=== PATIENT | male | born 1945 | race Caucasian/White ===

== ENCOUNTER 2017-11-16 09:13 | Emergency (ER) | payer MEDICARE, BC ==
--- OUTSIDE RECORDS SUMMARY | 2017-11-16 09:24 | XMS REPORT ---
:1945 External Reference #:[id number] Author Organization [employer] Address [address] [place] [address] [place] [address] Phone [phone] Care Team Providers Name Role Phone Girma Herrera III, MD Primary Care Physician Unavailable Payers Type Date Identification Numbers Payment Provider Subscriber Medicare Primary Effective: Policy Number: Medicare Yovany Pope 2010 [id number] PayID: [id number] [address] [place] [address] [facility] Part B Effective: Policy Number: BS Facets Yovany Pope 2010 [id number] PayID: [id number] [address] [address] [place] [address] Problems Date Description Provider Status Onset: 01/12/2011 Benign essential hypertension Girma Herrera M.D. Active Onset: 08/15/2012 Abdominal aortic aneurysm without Girma Herrera M.D. Active rupture Onset: 02/17/2015 Essential hypertension Girma Herrera M.D. Active Family History Date Family Member(s) Problem(s) Comments General Diabetes General Arthritis General [place] Father due to Diabetes () - complications of post-pancreatitis diabetes; ? [place]. age 64 Mother due to Arthritis () - ? complications from Rx for RA; age 79. ? 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) Cigarette Use Quit - Age 36 ETOH Use Drinks Alcoholic Beverages Occasionally Smoking Patient is a former smoker Exercise Type/Frequency Exercises regularly sit-ups daily; bikes 3x/week, walks Allergies, Adverse Reactions, Alerts Date Description Reaction Status Severity Comments 12/04/2006 NKDA active Medications Medication Date Status Form Strength Qnty SIG Indications Ordering Provider Valsartan Active Tablets 80mg 90tabs 1 by mouth Girma Erazo every day Sam Herrera No Active Hx Unknown Medications 018 - 018 Amlodipine Hx Tablets 10mg 30tabs 1 by mouth Girma Kessler Besylate 018 - every day Sharon Sam 018 Asa Hx 81mg 90units 1 po qd Girma Kessler 009 - Sharon Sam 012 Proctocream-HC Hx Cream 2.5% 30gm use as Girma Kessler 008 - directed Sharon Sam 015 Diovan 0 Hx Tablets 80mg 90tabs take 1 Girma Kessler 000 - tablet by Sharon mouth every M.DWm 018 day Immunizations CPT Code Status Date Vaccine Lot # [id number] Given 08/24/2015 Pneumococcal Conjugate Vaccine 13 Valent For [id number] Intramuscular Use 61510 Given 08/13/2011 Pneumonia Vaccine [id number] 53384 Given 07/11/2010 Tdap - Tetanus/Diptheria/Acellular Pertussis [id number] 48563 Given 02/10/2009 Influenza Virus 3Yrs & Over 35447 Given 02/17/2008 Influenza Virus 3Yrs & Over 58626 Given 04/22/2000 Td (History By Patient) Vital Signs Date Vital Result Comment 11/07/2017 Height 71.5 inches 5'11.50" Weight 193.25 lb Heart Rate 81 /min BP Systolic Sitting 136 mmHg BP Diastolic Sitting 80 mmHg O2 % BldC Oximetry 96 % BMI (Body Mass Index) 26.6 kg/m2 09/03/2017 Height 71.5 inches 5'11.50" Weight 198.00 lb Heart Rate 74 /min BP Systolic Sitting 128 mmHg BP Diastolic Sitting 80 mmHg O2 % BldC Oximetry 98 % BMI (Body Mass Index) 27.2 kg/m2 05/16/2017 Weight 194.25 lb Heart Rate 67 /min BP Systolic Sitting 138 mmHg BP Diastolic Sitting 84 mmHg O2 % BldC Oximetry 93 % 09/03/2016 Height 70.5 inches 5'10.50" Weight 188.38 lb Heart Rate 65 /min BP Systolic 130 mmHg BP Diastolic 76 mmHg Body Temperature 98.2 F O2 % BldC Oximetry 98 % BMI (Body Mass Index) 26.6 kg/m2 08/24/2015 Height 70.5 inches 5'10.50" Weight 190.00 lb Heart Rate 62 /min BP Systolic Sitting 144 mmHg BP Diastolic Sitting 88 mmHg Body Temperature 97.9 F O2 % BldC Oximetry 98 % BMI (Body Mass Index) 26.9 kg/m2 02/17/2015 Height 70.5 inches 5'10.50" Weight 195.00 lb Heart Rate 61 /min BP Systolic 128 mmHg BP Diastolic 90 mmHg Body Temperature 98.2 F O2 % BldC Oximetry 97 % BMI (Body Mass Index) 27.6 kg/m2 08/18/2014 Height 70.5 inches 5'10.50" Weight 190.00 lb Heart Rate 62 /min BP Systolic Sitting 142 mmHg BP Diastolic Sitting 82 mmHg Body Temperature 98.6 F O2 % BldC Oximetry 97 % BMI (Body Mass Index) 26.9 kg/m2 07/27/2014 Weight 190.00 lb Heart Rate 68 /min BP Systolic Sitting 128 mmHg BP Diastolic Sitting 82 mmHg Body Temperature 98.7 F O2 % BldC Oximetry 98 % 07/22/2014 Weight 193.00 lb Heart Rate 67 /min BP Systolic Sitting 128 mmHg BP Diastolic Sitting 88 mmHg O2 % BldC Oximetry 96 % 02/01/2014 Weight 193.75 lb Heart Rate 88 /min BP Systolic Sitting 138 mmHg 148/90 initially BP Diastolic Sitting 90 mmHg 148/90 initially Body Temperature 98.0 F 09/21/2013 Height 72 inches 6'0" Weight 190.00 lb Heart Rate 76 /min BP Systolic 120 mmHg BP Diastolic 78 mmHg BMI (Body Mass Index) 25.8 kg/m2 09/04/2013 Height 70.5 inches 5'10.50" Weight 194.50 lb Heart Rate 64 /min BP Systolic Sitting 152 mmHg BP Diastolic Sitting 100 mmHg Body Temperature 98.5 F BMI (Body Mass Index) 27.5 kg/m2 08/25/2013 BP Systolic 122 mmHg BP Diastolic 80 mmHg 08/17/2013 Height 70.5 inches 5'10.50" Weight 191.50 lb Heart Rate 104 /min BP Systolic Sitting 130 mmHg BP Diastolic Sitting 86 mmHg Body Temperature 98.5 F BMI (Body Mass Index) 27.1 kg/m2 02/16/2013 Height 70.5 inches 5'10.50" Weight 193.00 lb Heart Rate 60 /min BP Systolic Sitting 146 mmHg 158/102 BP Diastolic Sitting 96 mmHg 158/102 BMI (Body Mass Index) 27.3 kg/m2 08/15/2012 Height 70.75 inches 5'10.75" Weight 190.25 lb Heart Rate 70 /min BP Systolic Sitting 139 mmHg 148/84 initially BP Diastolic Sitting 92 mmHg 148/84 initially BMI (Body Mass Index) 26.7 kg/m2 03/06/2012 Height 70.5 inches 5'10.50" Weight 189.00 lb Heart Rate 64 /min BP Systolic Sitting 120 mmHg BP Diastolic Sitting 94 mmHg BMI (Body Mass Index) 26.7 kg/m2 08/29/2011 Height 70.5 inches 5'10.50" Weight 190.00 lb Heart Rate 70 /min BP Systolic 138 mmHg BP Diastolic 88 mmHg Body Temperature 98.5 F BMI (Body Mass Index) 26.9 kg/m2 08/13/2011 Height 70.5 inches 5'10.50" Weight 191.50 lb Heart Rate 60 /min BP Systolic Sitting 132 mmHg BP Diastolic Sitting 88 mmHg Body Temperature 97.3 F BMI (Body Mass Index) 27.1 kg/m2 06/26/2011 Height 70.5 inches 5'10.50" Weight 194.00 lb Heart Rate 76 /min BP Systolic Sitting 140 mmHg BP Diastolic Sitting 82 mmHg BMI (Body Mass Index) 27.4 kg/m2 01/12/2011 Height 70.5 inches 5'10.50" Weight 195.75 lb Heart Rate 72 /min BP Systolic Sitting 154 mmHg BP Diastolic Sitting 92 mmHg BMI (Body Mass Index) 27.7 kg/m2 07/11/2010 Height 72 inches 6'0" Weight 195.00 lb Heart Rate 76 /min BP Systolic Sitting 120 mmHg BP Diastolic Sitting 72 mmHg BMI (Body Mass Index) 26.4 kg/m2 05/30/2010 Weight 195.00 lb Heart Rate 69 /min BP Systolic Sitting 118 mmHg BP Diastolic Sitting 84 mmHg O2 % BldC Oximetry 97 % 12/21/2009 Weight 191.00 lb Heart Rate 62 /min BP Systolic 124 mmHg BP Diastolic 90 mmHg 06/20/2009 Height 71 inches 5'11" Weight 196.00 lb Heart Rate 80 /min BP Systolic Sitting 120 mmHg BP Diastolic Sitting 80 mmHg BMI (Body Mass Index) 27.3 kg/m2 12/21/2008 Height 71 inches 5'11" Weight 191.00 lb Heart Rate 72 /min BP Systolic Sitting 120 mmHg BP Diastolic Sitting 88 mmHg BMI (Body Mass Index) 26.6 kg/m2 08/11/2008 Height 71 inches 5'11" Weight 191.00 lb up 7# Heart Rate 64 /min BP Systolic Sitting 120 mmHg BP Diastolic Sitting 90 mmHg BMI (Body Mass Index) 26.6 kg/m2 12/01/2007 Height 71 inches 5'11" Weight 184.00 lb Heart Rate 60 /min BP Systolic Sitting 146 mmHg BP Diastolic Sitting 86 mmHg BMI (Body Mass Index) 25.7 kg/m2 07/10/2007 Height 71 inches 5'11" Heart Rate 60 /min BP Systolic Sitting 118 mmHg BP Diastolic Sitting 88 mmHg 06/02/2007 Height 71 inches 5'11" Weight 188.00 lb Heart Rate 136 /min BP Systolic Sitting 78 mmHg BMI (Body Mass Index) 26.2 kg/m2 12/04/2006 Height 71 inches 5'11" Weight 182.00 lb Heart Rate 56 /min BP Systolic Sitting 116 mmHg BP Diastolic Sitting 88 mmHg BMI (Body Mass Index) 25.4 kg/m2 Results Test Date Test Result H/L Range Note Basic Metabolic Panel 10/17/2017 Sodium 140 mmol/L 135-145 Potassium 4.3 mmol/L 3.5-5.0 Chloride 107 mmol/L 101-111 Co2 Carbon Dioxide 25 mmol/L 22-32 Anion Gap 8 mmol/L 2-11 Glucose 82 mg/dL 70-100 Blood Urea Nitrogen 14 mg/dL 6-24 Creatinine 1.23 mg/dL High 0.67-1.17 BUN/Creatinine Ratio 11.4 8-20 Calcium 9.1 mg/dL 8.6-10.3 Egfr Non- 58.0 >60 Egfr 70.2 >60 1 Basic Metabolic Panel 09/02/2017 Sodium 136 mmol/L Low 139-145 Potassium 4.2 mmol/L 3.5-5.0 Chloride 104 mmol/L 101-111 Co2 Carbon Dioxide 21 mmol/L Low 22-32 Anion Gap 11 mmol/L 2-11 Glucose 92 mg/dL 70-100 Blood Urea Nitrogen 15 mg/dL 6-24 Creatinine 1.22 mg/dL High 0.67-1.17 BUN/Creatinine Ratio 12.3 8-20 Calcium 9.6 mg/dL 8.6-10.3 Egfr Non- 58.6 >60 Egfr 75.3 >60 2 Comp Metabolic Panel 09/06/2016 Sodium 139 mmol/L 133-145 Potassium 4.5 mmol/L 3.5-5.0 Chloride 108 mmol/L 101-111 Co2 Carbon Dioxide 25 mmol/L 22-32 Anion Gap 6 mmol/L 2-11 Glucose 94 mg/dL 70-100 Blood Urea Nitrogen 20 mg/dL 6-24 Creatinine 1.47 mg/dL High 0.67-1.17 BUN/Creatinine Ratio 13.6 8-20 Calcium 9.0 mg/dL 8.6-10.3 Total Protein 6.7 g/dL 6.4-8.9 Albumin 4.1 g/dL 3.2-5.2 Globulin 2.6 g/dL 2-4 Albumin/Globulin Ratio 1.6 1-3 Total Bilirubin 0.60 mg/dL 0.2-1.0 Alkaline Phosphatase 97 U/L 34-104 Alt 15 U/L 7-52 Ast 19 U/L 13-39 Egfr Non- 47.4 >60 Egfr 60.9 >60 3 CMP Panel 08/19/2015 Sodium 139 mmol/L 133-145 Potassium 4.4 mmol/L 3.5-5.0 Chloride 105 mmol/L 101-111 Co2 Carbon Dioxide 28 mmol/L 22-32 Anion Gap 6 mmol/L 2-11 Glucose 93 mg/dL 70-100 Blood Urea Nitrogen 17 mg/dL 6-24 Creatinine 1.35 mg/dL High 0.67-1.17 BUN/Creatinine Ratio 12.6 8-20 Calcium 9.0 mg/dL 8.6-10.3 Total Protein 6.8 g/dL 6.4-8.9 Albumin 4.2 g/dL 3.2-5.2 Globulin 2.6 g/dL 2-4 Albumin/Globulin Ratio 1.6 1-3 Total Bilirubin 0.60 mg/dL 0.2-1.0 Alkaline Phosphatase 91 U/L 34-104 Alt 23 U/L 7-52 Ast 29 U/L 13-39 Egfr Non- 52.4 >60 Egfr 67.4 >60 4 Lipid Panel 08/19/2015 Triglycerides 154 mg/dL 5 Cholesterol 154 mg/dL 6 HDL Cholesterol 38.9 mg/dL 7 LDL Cholesterol 84 mg/dL 8 Comp Metabolic Panel 08/09/2014 Sodium 134 mmol/L 133-145 Potassium 4.3 mmol/L 3.5-5.0 Chloride 104 mmol/L 101-111 Co2 Carbon Dioxide 25 mmol/L 22-32 Anion Gap 5 mmol/L 2-11 Glucose 85 mg/dL 70-100 Blood Urea Nitrogen 17 mg/dL 6-24 Creatinine 1.16 mg/dL 0.67-1.17 BUN/Creatinine Ratio 14.7 8-20 Calcium 8.8 mg/dL 8.6-10.3 Total Protein 6.6 g/dL 6.4-8.9 Albumin 4.3 g/dL 3.2-5.2 Globulin 2.3 g/dL 2-4 Albumin/Globulin Ratio 1.9 1-3 Total Bilirubin 1.00 mg/dL 0.2-1.0 Alkaline Phosphatase 91 U/L 34-104 Alt 20 U/L 7-52 Ast 26 U/L 13-39 Egfr Non- 62.6 >60 Egfr 80.5 >60 9 Lipid Profile (Trig/Chol/HDL) 08/09/2014 Triglycerides 129 mg/dL 10 Cholesterol 161 mg/dL 11 HDL Cholesterol 40.8 mg/dL 12 LDL Cholesterol 94 mg/dL 13 CBC Auto Diff 08/07/2013 White Blood Count 6.8 10^3/uL 4.8-10.8 Red Blood Count 5.66 10^6/uL High 4.0-5.4 Hemoglobin 16.5 g/dL 14.0-18.0 Hematocrit 49 % 42-52 Mean Corpuscular Volume 87 fL 80-94 Mean Corpuscular Hemoglobin 29 pg 27-31 Mean Corpuscular HGB Conc 34 g/dL 31-36 Red Cell Distribution Width 14 % 10.5-15 Platelet Count 173 10^3/uL 150-450 Mean Platelet Volume 9 um3 7.4-10.4 Abs Neutrophils 4.5 10^3/uL 1.5-7.7 Abs Lymphocytes 1.7 10^3/uL 1.0-4.8 Abs Monocytes 0.4 10^3/uL 0-0.8 Abs Eosinophils 0.2 10^3/uL 0-0.6 Abs Basophils 0 10^3/uL 0-0.2 Abs Nucleated RBC 0.01 10^3/uL Granulocyte % 65.2 % 38-83 Lymphocyte % 25.1 % 25-47 Monocyte % 6.2 % 1-9 Eosinophil % 2.9 % 0-6 Basophil % 0.6 % 0-2 Nucleated Red Blood Cells % 0.1 Comp Metabolic Panel 08/07/2013 Sodium 139 mmol/L 133-145 Potassium 4.6 mmol/L 3.7-5.6 Chloride 105 mmol/L 101-111 Co2 Carbon Dioxide 28 mmol/L 22-32 Anion Gap 6 mmol/L 2-11 Glucose 86 mg/dL 70-100 Blood Urea Nitrogen 16 mg/dL 6-24 Creatinine 1.20 mg/dL High 0.67-1.17 BUN/Creatinine Ratio 13.3 8-20 Calcium 8.9 mg/dL 8.6-10.3 Total Protein 6.4 g/dL 6.4-8.9 Albumin 4.2 g/dL 3.2-5.2 Globulin 2.2 g/dL 2-4 Albumin/Globulin Ratio 1.9 1-3 Total Bilirubin 0.60 mg/dL 0.2-1.0 Alkaline Phosphatase 88 U/L 34-104 Alt 21 U/L 7-52 Ast 21 U/L 13-39 Egfr Non- 60.4 >60 Egfr 77.7 >60 14 Lipid Profile (Trig/Chol/HDL) 08/07/2013 Triglycerides 127 mg/dL 15 Cholesterol 160 mg/dL 16 HDL Cholesterol 38.2 mg/dL 17 LDL Cholesterol 96 mg/dL 18 Laboratory test finding 08/07/2013 Hepatitis C Antibody Nonreactive Nonreactive Basic Metabolic Panel 08/11/2012 Sodium 138 mmol/L 133-145 Potassium 4.6 mmol/L 3.5-5.0 Chloride 107 mmol/L 101-111 Co2 Carbon Dioxide 25.0 mmol/L 22-32 Anion Gap 6.0 mmol/L 2-11 Glucose 127 mg/dL High 70-100 Blood Urea Nitrogen 16 mg/dL 6-24 Creatinine 1.20 mg/dL 0.50-1.40 BUN/Creatinine Ratio 13.3 8-20 Calcium 9.4 mg/dL 8.1-9.9 Egfr Non- 60.6 >60 Egfr 77.9 >60 19 CBC W/Manual Diff 08/13/2011 White Blood Count 6.3 CUMM 4.8-10.8 Red Cell Count 5.15 CUMM 4.6-6.2 Hemoglobin 15.4 g/dL 14.0-18.0 Hematocrit 45 % 42-52 Mean Corpuscular Volume 87 um3 80-94 Mean Corpuscular Hemoglob 30 pg 27-31 Mean Corpuscular HGB Cone 35 g/dL 32-36 Redcell Distribution WDTH 14 % 10.5-15 Platelet Count 173 CUMM 150-450 Mean Platelet Volume 9.3 um3 7.4-10.4 Polysegmented Neutrophil 66 % 38-83 Lymphocyte 22 % Low 25-47 Monocyte 9 % 0-13 Eosinophil 1 % 0-6 Atypical Lymph 2 % 0-6 Absolute Neutrophil Count 4.10 RBC Morphology NORMAL Laboratory test finding 08/13/2011 PSA 1.32 NG/ML 0-4 20 Lipid Panel 08/13/2011 Triglyceride 106 mg/dL 40-200 Cholesterol 147 mg/dL Less Than 200 21 High Density Lipoprotein 35 mg/dL Low 40-60 22 Cholesterol/HDL Ratio 4.20 AVERAGE 1-4.97 Low Density Lipoprotein 91 mg/dL Less Than 100 23 CMP Panel 08/13/2011 Sodium 138 mmol/L 135-145 Potassium 4.1 mmol/L 3.5-5.0 Chloride 108 mmol/L 101-111 Co2 (Carbon Dioxide) 25.0 mmol/L 22-32 Anion Gap 5.0 mmol/L 2-11 24 Glucose 91 mg/dL 70-100 BUN 15 mg/dL 6-24 Creatinine 1.1 mg/dL 0.50-1.40 One Over Creatinine 0.90 BUN/Creatinine Ratio 13.6 8-20 Calcium 8.5 mg/dL 8.1-9.9 Total Protein 6.5 GM/DL 6.2-8.1 Albumin 3.8 GM/DL 3.2-5.2 Globulin 2.7 GM/DL 2-4 Albumin/Globulin Ratio 1.4 1-3 Bilirubin Total 0.9 mg/dL 0.4-1.5 25 Alkaline Phosphatase 92 U/L 39-117 Alt (SGPT) 21 U/L 17-63 Ast (Sgot) 22 U/L 12-42 eGFR Non- 67.2 > 60 eGFR 86.4 > [address] Herrera's Lab Panel 08/13/2011 TSH 1.38 MIU/ML 0.34-5.60 Laboratory test finding 06/28/2009 PSA Screening 1.16 NG/ML 0-4 27 CBC With Electronic Diff 06/28/2009 White Blood Count 10.3 CUMM 4.8-10.8 Red Cell Count 5.61 CUMM 4.6-6.2 Hemoglobin 16.2 g/dL 14.0-18.0 Hematocrit 48 % 42-52 Mean Corpuscular Volume 86 um3 80-94 Mean Corpuscular Hemoglob 29 pg 27-31 Mean Corpuscular HGB Cone 34 g/dL 32-36 Redcell Distribution WDTH 14 % 10.5-15 Platelet Count 186 CUMM 150-450 Mean Platelet Volume 9.0 um3 7.4-10.4 Gran % 77.6 % 38-83 Lymph % 13.5 % Low 25-47 Mononuclear % 5.7 % 1-9 Eosinophil % 2.8 % 0-6 Basophil % 0.4 % 0-2 Abs Lymphs 1.4 1.0-4.8 Abs Mononuclear 0.6 0-0.8 Absolute Neutrophil Count 8.0 High 1.5-7.7 Abs Eosinophils 0.3 0-0.6 Abs Basophils 0 0-0.2 28 Lipid Profile (Trig/Chol/HDL) 06/28/2009 Triglyceride 68 mg/dL 40-200 Cholesterol 174 mg/dL Less Than 200 29 High Density Lipoprotein 39 mg/dL Low 40-60 30 Cholesterol/HDL Ratio 4.46 AVERAGE 1-4.97 Low Density Lipoprotein 121 mg/dL High Less Than 100 31 Comp Metabolic Panel 06/28/2009 Sodium 136 mmol/L 135-145 Potassium 4.1 mmol/L 3.5-5.0 Chloride 104 mmol/L 101-111 Co2 (Carbon Dioxide) 26.0 mmol/L 22-32 Anion Gap 6.0 mmol/L 2-11 32 Glucose 90 mg/dL 70-100 33 BUN 15 mg/dL 6-24 Creatinine 1.20 mg/dL 0.50-1.40 One Over Creatinine 0.80 BUN/Creatinine Ratio 12.5 8-20 Calcium 9.0 mg/dL 8.1-9.9 34 Total Protein 6.4 GM/DL 6.2-8.1 Albumin 3.8 GM/DL 3.2-5.2 Globulin 2.6 GM/DL 2-4 Albumin/Globulin Ratio 1.5 1-3 Bilirubin Total 0.9 mg/dL 0.4-1.5 35 Alkaline Phosphatase 112 U/L 39-117 Alt (SGPT) 22 U/L 17-63 Ast (Sgot) 20 U/L 12-42 eGFR Non- 65.0 > 60 eGFR 78.6 > [address] Herrera's Lab Panel 06/28/2009 TSH 1.72 MIU/ML 0.34-5.60 Laboratory test finding 08/09/2008 TSH 0.93 MIU/ML 0.34-5.60 PSA Screening 1.32 NG/ML 0-4 37 Lipid Profile (Trig/Chol/HDL) 08/09/2008 Triglyceride 99 mg/dL 40-200 Cholesterol 198 mg/dL Less Than 200 38 High Density Lipoprotein 42 mg/dL 40-60 39 Cholesterol/HDL Ratio 4.71 AVERAGE 1-4.97 Low Density Lipoprotein 136 mg/dL High Less Than 100 40 Comp Metabolic Panel 08/09/2008 Sodium 138 mmol/L 135-145 Potassium 4.2 mmol/L 3.5-5.0 Chloride 106 mmol/L 101-111 Co2 (Carbon Dioxide) 26.0 mmol/L 22-32 Anion Gap 6.0 mmol/L 2-11 41 Glucose 94 mg/dL 70-100 42 BUN 12 mg/dL 6-24 Creatinine 1.20 mg/dL 0.50-1.40 One Over Creatinine 0.80 BUN/Creatinine Ratio 10.0 8-20 Calcium 9.1 mg/dL 8.1-9.9 43 Total Protein 6.6 GM/DL 6.2-8.1 Albumin 4.3 GM/DL 3.2-5.2 Globulin 2.3 GM/DL 2-4 Albumin/Globulin Ratio 1.9 1-3 Bilirubin Total 1.1 mg/dL 0.4-1.5 Alkaline Phosphatase 107 U/L 39-117 Alt (SGPT) 33 U/L 17-63 Ast (Sgot) 33 U/L 12-42 CBC With Electronic Diff 08/09/2008 White Blood Count 6.4 CUMM 4.8-10.8 Red Cell Count 5.56 CUMM 4.6-6.2 Hemoglobin 16.2 g/dL 14.0-18.0 Hematocrit 48 % 42-52 Mean Corpuscular Volume 86 um3 80-94 Mean Corpuscular Hemoglob 29 pg 27-31 Mean Corpuscular HGB Cone 34 g/dL 32-36 Redcell Distribution WDTH 13 % 10.5-15 Platelet Count 204 CUMM 150-450 Mean Platelet Volume 9.0 um3 7.4-10.4 Gran % 66.0 % 38-83 Lymph % 23.3 % Low 25-47 Mononuclear % 7.3 % 1-9 Eosinophil % 2.8 % 0-6 Basophil % 0.6 % 0-2 Abs Lymphs 1.5 1.0-4.8 Abs Mononuclear 0.5 0-0.8 Absolute Neutrophil Count 4.2 1.5-7.7 Abs Eosinophils 0.2 0-0.6 Abs Basophils 0 0-0.2 Lipid Profile 05/27/2007 Cholesterol/HDL Ratio 4.30 AVERAGE 1-4.97 44 (Trig/Chol/HDL) Cholesterol 172 mg/dL Less Than 200 44, 45 Triglyceride 95 mg/dL 40-200 44 High Density Lipoprotein 40 mg/dL 40-60 44 Low Density Lipoprotein 113 mg/dL High Less Than 100 44, 46 Laboratory test finding 05/27/2007 PSA Screening 1.09 NG/ML 0-4 44, 47 TSH 0.74 MIU/ML 0.34-5.60 44 Comp Metabolic Panel 05/27/2007 One Over Creatinine 0.76 44 Anion Gap 1.0 mmol/L Low 2-11 44, 48 Albumin/Globulin Ratio 1.3 1-3 44 Albumin 4.0 GM/DL 3.2-5.2 44 Alkaline Phosphatase 97 U/L 39-117 44 Alt (SGPT) 25 U/L 17-63 44 Ast (Sgot) 24 U/L 12-42 44 BUN 20 mg/dL 6-24 44 Calcium 9.2 mg/dL 8.7-10.2 44 Chloride 107 mmol/L 101-111 44 Co2 (Carbon Dioxide) 30.0 mmol/L 22-32 44 Globulin 3.1 GM/DL 2-4 44 Glucose 93 mg/dL 70-105 44 Potassium 4.5 mmol/L 3.5-5.0 44 Sodium 138 mmol/L 135-145 44 Bilirubin Total 0.7 mg/dL 0.4-1.5 44 Total Protein 7.1 GM/DL 6.2-8.1 44 BUN/Creatinine Ratio 15.4 8-20 44 Creatinine 1.3 mg/dL 0.5-1.4 44 CBC With Electronic Diff 05/27/2007 White Blood Count 7.6 CUMM 4.8-10.8 44 Abs Basophils 0 0-0.2 44 Abs Eosinophils 0.2 0-0.6 44 Absolute Neutrophil Count 5.2 1.5-7.7 44 Abs Lymphs 1.7 1.0-4.8 44 Abs Mononuclear 0.5 0-0.8 44 Basophil % 0.3 % 0-2 44 Hematocrit 44 % 42-52 44 Hemoglobin 15.1 g/dL 14.0-18.0 44 Eosinophil % 2.6 % 0-6 44 Gran % 67.8 % 38-83 44 Lymph % 22.6 % 20-45 44 Mean Corpuscular HGB Cone 34 g/dL 32-36 44 Mean Corpuscular Hemoglob 28 pg 27-31 44 Mean Corpuscular Volume 83 um3 80-94 44 Mean Platelet Volume 9.3 um3 7.4-10.4 44 Mononuclear % 6.7 % 1-9 44 Platelet Count 189 CUMM 150-450 44 Red Cell Count 5.33 CUMM 4.6-6.2 44 Redcell Distribution WDTH 14 % 10.5-15 44 1 Because ethnic data is not always readily available, this report includes an eGFR for both -Americans and non- Americans. The National Kidney Disease Education Program (NKDEP) does not endorse the use of the MDRD equation for patients that are not between the ages of 18 and 70, are , have extremes of body size, muscle mass, or nutritional status, or are non- or non-. According to the National Kidney Foundation, irrespective of diagnosis, the stage of the disease is based on the level of kidney function: Stage Description GFR(mL/min/1.73 m(2)) 1 Kidney damage with normal or decreased GFR 90 2 Kidney damage with mild decrease in GFR 60-89 3 Moderate decrease in GFR 30-59 4 Severe decrease in GFR 15-29 5 Kidney failure <15 (or dialysis) 2 Because ethnic data is not always readily available, this report includes an eGFR for both -Americans and non- Americans. The National Kidney Disease Education Program (NKDEP) does not endorse the use of the MDRD equation for patients that are not between the ages of 18 and 70, are , have extremes of body size, muscle mass, or nutritional status, or are non- or non-. According to the National Kidney Foundation, irrespective of diagnosis, the stage of the disease is based on the level of kidney function: Stage Description GFR(mL/min/1.73 m(2)) 1 Kidney damage with normal or decreased GFR 90 2 Kidney damage with mild decrease in GFR 60-89 3 Moderate decrease in GFR 30-59 4 Severe decrease in GFR 15-29 5 Kidney failure <15 (or dialysis) 3 Because ethnic data is not always readily available, this report includes an eGFR for both -Americans and non- Americans. The National Kidney Disease Education Program (NKDEP) does not endorse the use of the MDRD equation for patients that are not between the ages of 18 and 70, are , have extremes of body size, muscle mass, or nutritional status, or are non- or non-. According to the National Kidney Foundation, irrespective of diagnosis, the stage of the disease is based on the level of kidney function: Stage Description GFR(mL/min/1.73 m(2)) 1 Kidney damage with normal or decreased GFR 90 2 Kidney damage with mild decrease in GFR 60-89 3 Moderate decrease in GFR 30-59 4 Severe decrease in GFR 15-29 5 Kidney failure <15 (or dialysis) 4 Because ethnic data is not always readily available, this report includes an eGFR for both -Americans and non- Americans. The National Kidney Disease Education Program (NKDEP) does not endorse the use of the MDRD equation for patients that are not between the ages of 18 and 70, are , have extremes of body size, muscle mass, or nutritional status, or are non- or non-. According to the National Kidney Foundation, irrespective of diagnosis, the stage of the disease is based on the level of kidney function: Stage Description GFR(mL/min/1.73 m(2)) 1 Kidney damage with normal or decreased GFR 90 2 Kidney damage with mild decrease in GFR 60-89 3 Moderate decrease in GFR 30-59 4 Severe decrease in GFR 15-29 5 Kidney failure <15 (or dialysis) 5 Desirable <150 Borderline high 150-199 High 200-499 Very High >500 6 Desirable <200 Borderline high 200-239 High >239 7 Low <40 Desirable: 40-60 High: >60 8 Desirable: <100 mg/dL Near Optimal: 100-129 mg/dL Borderline High: 130-159 mg/dL High: 160-189 mg/dL Very High: >189 mg/dL 9 Because ethnic data is not always readily available, this report includes an eGFR for both -Americans and non- Americans. The National Kidney Disease Education Program (NKDEP) does not endorse the use of the MDRD equation for patients that are not between the ages of 18 and 70, are , have extremes of body size, muscle mass, or nutritional status, or are non- or non-. According to the National Kidney Foundation, irrespective of diagnosis, the stage of the disease is based on the level of kidney function: Stage Description GFR(mL/min/1.73 m(2)) 1 Kidney damage with normal or decreased GFR 90 2 Kidney damage with mild decrease in GFR 60-89 3 Moderate decrease in GFR 30-59 4 Severe decrease in GFR 15-29 5 Kidney failure <15 (or dialysis) 10 Desirable <150 Borderline high 150-199 High 200-499 Very High >500 11 Desirable <200 Borderline high 200-239 High >239 12 Low <40 Desirable: 40-60 High: >60 13 Desirable: <100 mg/dL Near Optimal: 100-129 mg/dL Borderline High: 130-159 mg/dL High: 160-189 mg/dL Very High: >189 mg/dL 14 Because ethnic data is not always readily available, this report includes an eGFR for both -Americans and non- Americans. The National Kidney Disease Education Program (NKDEP) does not endorse the use of the MDRD equation for patients that are not between the ages of 18 and 70, are , have extremes of body size, muscle mass, or nutritional status, or are non- or non-. According to the National Kidney Foundation, irrespective of diagnosis, the stage of the disease is based on the level of kidney function: Stage Description GFR(mL/min/1.73 m(2)) 1 Kidney damage with normal or decreased GFR 90 2 Kidney damage with mild decrease in GFR 60-89 3 Moderate decrease in GFR 30-59 4 Severe decrease in GFR 15-29 5 Kidney failure <15 (or dialysis) 15 Desirable <150 Borderline high 150-199 High 200-499 Very High >500 16 Desirable <200 Borderline high 200-239 High >239 17 Low <40 Desirable: 40-60 High: >60 18 Desirable <100 Near Optimal 100-129 Borderline high 130-159 High 160-189 Very High >189 19 Because ethnic data is not always readily available, this report includes an eGFR for both -Americans and non- Americans. The National Kidney Disease Education Program (NKDEP) does not endorse the use of the MDRD equation for patients that are not between the ages of 18 and 70, are , have extremes of body size, muscle mass, or nutritional status, or are non- or non-. According to the National Kidney Foundation, irrespective of diagnosis, the stage of the disease is based on the level of kidney function: Stage Description GFR(mL/min/1.73 m(2)) 1 Kidney damage with normal or decreased GFR 90 2 Kidney damage with mild decrease in GFR 60-89 3 Moderate decrease in GFR 30-59 4 Severe decrease in GFR 15-29 5 Kidney failure <15 (or dialysis) 20 * SERUM LEVELS OF PSA MEASURED USING THE GENESIS Surface Tension ACCESS HYBRITECH IMMUNOASSAY SHOULD NOT BE INTERPRETED ABSOLUTE EVIDENCE OF THE PRESENCE OR ABSENCE OF DISEASE. THE PSA VALUE SHOULD BE USED IN CONJUNCTION WITH OTHER PERTINENT CLINICAL DIAGNOSTIC PROCEDURES. The values obtained with different assay methods or kits cannot be used interchangeably. 21 CHOLESTEROL INTERPRETATION: Desirable: Less than 200 MG/DL Borderline-High Risk: 200-239 MG/DL High-Risk: 240 MG/DL and over 22 HDL INTERPRETATION: Undesirable: High Risk: Less than 40 MG/DL Desirable: Low Risk: Greater than 60 MG/DL 23 LDL INTERPRETATION: Low Risk Optimal Level: LDL Less than 100 MG/DL Near or Above Optimal: LDL 100-129 MG/DL Borderline High Risk: LDL 130-159 MG/DL High Risk: LDL 160-189 MG/DL Very High Risk: LDL Greater than 189 MG/DL 24 Anion gap measurement may be of limited value in the presence of any alkalosis, especially in a combined acid base disorder. . 25 A metabolite of Naproxen, O-desmethylnaproxen, has been shown to interfere with the Jendrassik-Nesbitt method for measuring total bilirubin. Samples from patients who have taken Naproxen have shown spurious elevation in total bilirubin levels. 26 Because ethnic data is not always readily available, this report includes an eGFR for both -Americans and non- Americans. The National Kidney Disease Education Program (NKDEP) does not endorse the use of the MDRD equation for patients that are not between the ages of 18 and 70, are , have extremes of body size, muscle mass, or nutritional status, or are non- or non-. According to the National Kidney Foundation, irrespective of diagnosis, the stage of the disease is based on the level of kidney function: Stage Description GFR(mL/min/1.73 m(2)) 1 Kidney damage with normal or decreased GFR 90 2 Kidney damage with mild decrease in GFR 60-89 3 Moderate decrease in GFR 30-59 4 Severe decrease in GFR 15-29 5 Kidney failure <15 (or dialysis) 27 * SERUM LEVELS OF PSA MEASURED USING THE GENESIS PEDRO ACCESS HYBRITECH IMMUNOASSAY SHOULD NOT BE INTERPRETED ABSOLUTE EVIDENCE OF THE PRESENCE OR ABSENCE OF DISEASE. THE PSA VALUE SHOULD BE USED IN CONJUNCTION WITH OTHER PERTINENT CLINICAL DIAGNOSTIC PROCEDURES. 28 Lymphopenia % 29 CHOLESTEROL INTERPRETATION: Desirable: Less than 200 MG/DL Borderline-High Risk: 200-239 MG/DL High-Risk: 240 MG/DL and over 30 HDL INTERPRETATION: Undesirable: High Risk: Less than 40 MG/DL Desirable: Low Risk: Greater than 60 MG/DL 31 LDL INTERPRETATION: Low Risk Optimal Level: LDL Less than 100 MG/DL Near or Above Optimal: LDL 100-129 MG/DL Borderline High Risk: LDL 130-159 MG/DL High Risk: LDL 160-189 MG/DL Very High Risk: LDL Greater than 189 MG/DL 32 Anion gap measurement may be of limited value in the presence of any alkalosis, especially in a combined acid base disorder. . 33 Note change in reference range as of 12/11/07. The change was based on recommendations from the [place] [employer]. 34 Please note change in reference range effective 07 . 35 A metabolite of Naproxen, O-desmethylnaproxen, has been shown to interfere with the Jendrassik-Nesbitt method for measuring total bilirubin. Samples from patients who have taken Naproxen have shown spurious elevation in total bilirubin levels. 36 Because ethnic data is not always readily available, this report includes an eGFR for both -Americans and non- Americans. The National Kidney Disease Education Program (NKDEP) does not endorse the use of the MDRD equation for patients that are not between the ages of 18 and 70, are , have extremes of body size, muscle mass, or nutritional status, or are non- or non-. According to the National Kidney Foundation, irrespective of diagnosis, the stage of the disease is based on the level of kidney function: Stage Description GFR(mL/min/1.73 m(2)) 1 Kidney damage with normal or decreased GFR 90 2 Kidney damage with mild decrease in GFR 60-89 3 Moderate decrease in GFR 30-59 4 Severe decrease in GFR 15-29 5 Kidney failure <15 (or dialysis) 37 * SERUM LEVELS OF PSA MEASURED USING THE [employer] ACCESS HYBRITECH IMMUNOASSAY SHOULD NOT BE INTERPRETED ABSOLUTE EVIDENCE OF THE PRESENCE OR ABSENCE OF DISEASE. THE PSA VALUE SHOULD BE USED IN CONJUNCTION WITH OTHER PERTINENT CLINICAL DIAGNOSTIC PROCEDURES. 38 CHOLESTEROL INTERPRETATION: Desirable: Less than 200 MG/DL Borderline-High Risk: 200-239 MG/DL High-Risk: 240 MG/DL and over 39 HDL INTERPRETATION: Undesirable: High Risk: Less than 40 MG/DL Desirable: Low Risk: Greater than 60 MG/DL 40 LDL INTERPRETATION: Low Risk Optimal Level: LDL Less than 100 MG/DL Near or Above Optimal: LDL 100-129 MG/DL Borderline High Risk: LDL 130-159 MG/DL High Risk: LDL 160-189 MG/DL Very High Risk: LDL Greater than 189 MG/DL 41 Anion gap measurement may be of limited value in the presence of any alkalosis, especially in a combined acid base disorder. . 42 Note change in reference range as of 12/11/07. The change was based on recommendations from the [place] [employer]. 43 Please note change in reference range effective 07 . 44 PATIENT MAY HAVE RESULTS PER DOCTOR'S AUTHORIZATION. Questions regarding this report should be directed to your doctor. 45 Classification: Desirable . 46 CALCULATED LDL APPROXIMATES THE VALUE OF A DIRECT LDL MEASUREMENT. Classification: Near or above optimal . 47 * SERUM LEVELS OF PSA MEASURED USING THE GENESIS PEDRO ACCESS HYBRITECH IMMUNOASSAY SHOULD NOT BE INTERPRETED ABSOLUTE EVIDENCE OF THE PRESENCE OR ABSENCE OF DISEASE. THE PSA VALUE SHOULD BE USED IN CONJUNCTION WITH OTHER PERTINENT CLINICAL DIAGNOSTIC PROCEDURES. 48 Anion gap measurement may be of limited value in the presence of any alkalosis, especially in a combined acid base disorder. . Procedures Date CPT Code Description Status 06/13/2015 Diabetic Retinal Eye Exam Completed 01/26/2010 Colonoscopy Completed 06/20/2009 30428 EKG Tracing & Interpretation Completed 08/11/2008 75742 EKG Tracing & Interpretation Completed 03/14/2004 Colonoscopy Completed Encounters Type Date Location Provider CPT E/M Dx Office Visit 05/16/2017 2:40p [facility] Girma Herrera [id number] I10 - Ivan Vargas Office Visit 09/03/2016 1:00p [facility] Girma Herrera 63955 I10 - Ivan Vargas I71.4 Office Visit 02/17/2015 10:00a [facility] Girma Herrera 61085 I10 - Lauren Vargas Office Visit 07/27/2014 1:20p [facility] Girma Herrera 25175 782.1 - Lauren Vargas Office Visit 07/22/2014 9:30a [facility] Nurse Visit C [id number] 401.1 - Lauren Office Visit 02/01/2014 1:00p [facility] Girma Herrera 23657 401.1 - Lauren Vargas Office Visit 09/21/2013 9:00a [facility] Nisreen Wang, 19283 715.16 Of [facility].Kannan Office Visit 09/04/2013 2:40p [facility] Girma Herrera 05533 719.46 - Lauren Vargas Office Visit 02/16/2013 10:00a [facility] Girma Herrera 98984 401.1 - Lauren Vargas 441.4 V77.91 V73.89 Office Visit 03/06/2012 11:40a [facility] Girma Herrera 61504 401.1 - Lauren Cotton.D. 441.4 Office Visit 08/29/2011 1:40p [facility] 98301 465.9 - [place] L[place].Kannan 441.4 Office Visit 08/13/2011 10:20a [facility], 03418 V70.0 - [place] Lula.Kannan 401.1 602.9 V03.82 V81.2 Office Visit 06/26/2011 4:00p [facility], 18356 401.1 - [place] Lula.Kannan Office Visit 01/12/2011 10:00a DO Not Use Rn Lpn Cna [facility], 46805 401.1 [facility].DWm Office Visit 07/11/2010 10:40a DO Not Use Rn Lpn Cna [facility], 37210 V70.0 [facility].DWm 401.1 602.9 V06.5 Office Visit 05/30/2010 10:20a DO Not Use Rn Lpn Cna [facility], 07239 401.1 [facility].DWm 602.9 Office Visit 12/21/2009 10:00a DO Not Use Rn Lpn Cna [facility], 25087 401.1 [facility].DWm 602.9 Office Visit 06/20/2009 9:20a DO Not Use Rn Lpn Cna [facility], 65172 401.1 [facility].DWm 602.9 Office Visit 12/21/2008 10:00a [facility], 37631 791.0 [facility].D. 401.1 Office Visit 08/11/2008 9:30a [facility], 40755 602.9 [facility] M.D. 401.1 Office Visit 12/01/2007 11:00a [facility], 10702 401.1 [facility].D. Office Visit 07/10/2007 11:30a [facility], 09790 550.00 [facility].D. Office Visit 06/02/2007 10:30a [facility] AT Girma Kessler [place], 66772 401.1 [facility] Sam Office Visit 12/04/2006 10:00a [facility], 41441 401.1 [facility] Sam Plan of Care Future Appointment(s):03/06/2018 11:40 am - Girma Herrera M.D. at [facility] - Ffkafmids44/19/2018 - Girma Herrera M.D.I10 Essential ( primary) hypertensionFollow up:mid Nov or [id number] Pain in right shoulderNew Therapy:Physical Therapy
[2017-11-16 09:37] VITALS: BP 140/90
--- NOTE | 2017-11-16 10:14 | UC ---
Throat Pain/Nasal Richard HPI - HPI Summary HPI Summary: 10 day history of sore throat and cough, now with residual hoarse voice. Last night he had chills and sweats, but no fever. He had about 4 hours of mild right chest discomfort this morning, from 4 am to about 8 am, without associated nausea, vomiting, shortness of breath. Came today due to concern hat he might have neumonia. No recent stress test, unaware of any previous EKG abnormality. Over the past days, has had usual amounts of activity, without any change in energy level, no fatiguability. Walks 2 miles every other day, no pain with exertion. recent change from valsartan due to med re-check. Was on irbesartan, saw Dr. Herrera due to concern about cough, and was changed to losartan a week ago. BP's have been running a bit higher than his usual 135/80. No hx of reflux Does do a lot of mowing. - History of Current Complaint Chief Complaint: UCGeneralIllness Stated Complaint: SORE THROAT,COUGH Time Seen by Provider: 11/16/17 09:47 Hx Obtained From: Patient Onset/Duration: Gradual Onset, Lasting Days - 10 Pain Intensity: 2 Cough: None Associated Signs & Symptoms: Positive: Hoarseness - Epiglottits Risk Factors Epiglottis Risk Factors: Negative - Allergies/Home Medications Allergies/Adverse Reactions: Allergies Allergy/AdvReac Type Severity Reaction Status Date / Time No Known Allergies Allergy Verified 11/16/17 09:23 Home Medications: Home Medications Acetaminophen TAB* [Tylenol TAB*] 650 mg PO Q4H PRN 11/16/17 [History Confirmed 11/16/17] Losartan TAB* [Cozaar TAB*] 50 mg PO DAILY 11/16/17 [History Confirmed 11/16/17] PMH/Surg Hx/FS Hx/Imm Hx Cardiovascular History: Hypertension, Other - AAA being monitored. Other Cardiovascular History: abdominal aortic aneurysm - Surgical History Surgical History: Yes Surgery Procedure, Year, and Place: VASTECTOMY. HERNIA - Family History Known Family History: Positive: Cardiac Disease - father of massive [place] - Social History Occupation: Retired - but active, still drives a bus Alcohol Use: Occasionally Substance Use Type: None Smoking Status (MU): Current Some Day Smoker Type: Cigars Amount Used/How Often: 1-2 cigars q month Review of Systems Constitutional: Chills - last pm Skin: Negative Eyes: Negative ENT: Sore Throat Respiratory: Negative Cardiovascular: Negative Gastrointestinal: Negative Genitourinary: Negative Motor: Negative Neurovascular: Negative Musculoskeletal: Negative Neurological: Negative Psychological: Negative Is Patient Immunocompromised?: No All Other Systems Reviewed And Are Negative: Yes Physical Exam Triage Information Reviewed: Yes Appearance: Well-Appearing, No Pain Distress Vital Signs: Initial Vital Signs Temp 98.6 F 11/16/17 09:24 Pulse 77 11/16/17 09:24 Resp 18 11/16/17 09:24 BP 140/90 11/16/17 09:24 Pulse Ox 96 11/16/17 09:24 Eye Exam: Normal ENT: Positive: Pharynx normal Dental Exam: Other - upper denture. Neck: Positive: Supple, Nontender, No Lymphadenopathy Respiratory: Positive: Lungs clear, Normal breath sounds, No respiratory distress Cardiovascular: Positive: RRR, No Murmur Abdomen Description: Positive: Nontender, No Organomegaly, Soft Musculoskeletal Exam: Normal, Other - no palpable tenderness along sternum or ribs right or left side. Neurological Exam: Normal Skin Exam: Normal Diagnostics - EKG Cardiac Rate: NL Cardiac Rhythm: Sinus: Normal Ectopy: None ST Segment: Non-Specific EKG Comparison: Other - left anterior fascicular block. Throat Pain/Nasal Course/Dx - Course Course Of Treatment: Discussed EKG change could be old or new, but clinical symptoms are not in keeping with ischemia. Likely viral respiratory illness or allergies concomitant with medication change. - Differential Dx/Diagnosis Differential Diagnosis/HQI/PQRI: Pharyngitis, Tonsillitis, Other - reflux Provider Diagnoses: viral illness resolving, possible allergies. Discharge - Sign-Out/Discharge Documenting (check all that apply): Patient Departure - Discharge Plan Condition: Stable Disposition: HOME Patient Education Materials: Upper Respiratory Infection (ED) Referrals: Girma Herrera MD [Primary Care Provider] - Additional Instructions: Your symptoms are most consistent with a respiratory illness that if improving. Voice hoarseness could be due to allergies, and you might try loratidine 10mg once daily as a trial to see if it improves your symptoms. If you have recurrent chest pain, I urge you to go to the Emergency room for evaluation. Follow up with Dr. Herrera 8.8.18 as arranged. - Billing Disposition and Condition Condition: STABLE Disposition: Home
== END 2017-11-16 10:29 | disposition home or self-care (01) ==
LOC: UCCORT 09:13
DX: B34.9 Viral infection, unspecified (principal); F17.210 Nicotine dependence, cigarettes, uncomplicated
CPT/HCPCS: 93005; 99211; G0463

== ENCOUNTER 2017-11-19 11:21 | Emergency (ER) | payer MEDICARE, BC ==
[2017-11-19 11:44] VITALS: BP 155/93
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
== END 2017-11-19 12:05 | disposition home or self-care (01) ==
LOC: UCCORT 11:21
DX: M54.9 Dorsalgia, unspecified (principal); I10 Essential (primary) hypertension; F17.210 Nicotine dependence, cigarettes, uncomplicated; Z86.79 Personal history of other diseases of the circulatory system
CPT/HCPCS: 99211; G0463

== ENCOUNTER 2017-11-19 13:03 | Emergency (ER) | payer MEDICARE, BC ==
[2017-11-19] MEDS ORDERED: NS 0.9% 1000 ML* 1,000 ML IV ONE (13:21)
[2017-11-19 13:56] LABS: ABS Basophils 0.1 10^3/ul (0-0.2); ABS Eosinophils 0.1 10^3/ul (0-0.6); ABS Lymphocytes 1.7 10^3/ul (1.0-4.8); ABS Monocytes 0.8 10^3/ul (0-0.8); ABS Neutrophils 7.5 10^3/ul (1.5-7.7); ABS Nucleated RBC 0 10^3/ul; Eosinophil % 0.7 % (0-6); Hematocrit 47 % (42-52); Hemoglobin 15.7 g/dl (14.0-18.0); Lymphocyte % 16.3 % (25-47); Mean Corpuscular HGB Conc 34 g/dl (31-36); Mean Corpuscular Hemoglobin 29 pg (27-31); Mean Corpuscular Volume 86 fL (80-94); Mean Platelet Volume 8.4 um3 (7.4-10.4); Nucleated Red Blood Cells % 0.1; Platelet Count 228 10^3/ul (150-450); Red Blood Count 5.45 10^6/ul (4.00-5.40); Red Cell Distribution Width 14 % (10.5-15); White Blood Count 10.1 10^3/ul (3.5-10.8)
[2017-11-19 14:15] LABS: EGFR Non-African American 67.2 (>60)
[2017-11-19] MEDS ORDERED: Iohexol 350* (CONTRAST) 500 ML MDV IV ONE (14:42)
--- NOTE | 2017-11-19 15:27 | RAD ---
HISTORY: chest/back pain -- known stable AAA COMPARISONS: September 12, 2016, ultrasound dated September 01, 2015, ultrasound dated September 12, 2014 TECHNIQUE: Multiple contiguous axial CT scans were obtained of the chest, abdomen, and pelvis after the administration of intravenous contrast. Coronal and sagittal multiplanar reformations are submitted for review.. Oral contrast was not administered. 3-D volumetric instructions of the aorta are also submitted for review FINDINGS: CHEST NECK AND THYROID: The lower neck and thyroid are unremarkable. CHEST WALL: There is no lower cervical, axillary, or supraclavicular lymphadenopathy by size criteria. HEART AND PERICARDIUM: The heart is unremarkable. AORTA AND PULMONARY VASCULATURE: The aorta and pulmonary vasculature are normal. There is no aneurysmal dilatation. There is no intimal flap to suggest dissection. The aorta is mildly tortuous. MEDIASTINUM: There is no mediastinal lymphadenopathy by size criteria. BRYCE: There is no hilar lymphadenopathy by size criteria. AIRWAY AND ESOPHAGUS: The airway is unremarkable, without endobronchial filling defect. The esophagus is grossly normal. LUNG PARENCHYMA: The lungs are clear. PLEURA: No pleural abnormalities are noted. BONES AND SOFT TISSUES: No bone or soft tissue abnormalities are noted. ABDOMEN/PELVIS: LIVER: The liver is normal in shape, size, contour, and attenuation. BILE DUCTS: There is no intrahepatic or extrahepatic biliary dilatation. GALLBLADDER: The gallbladder is normal, without pericholecystic inflammatory change. PANCREAS: The pancreas is normal, without mass or ductal dilatation. SPLEEN: Normal in size and appearance. UPPER GI TRACT: Evaluation of the gastrointestinal tract is limited by incomplete gastric distention. The upper GI tract is unremarkable. SMALL BOWEL & MESENTERY: The small bowel is normal in contour, course, and caliber. There is no obstruction or dilatation. COLON: The colon is normal in contour, course, caliber. There is no pericolonic inflammatory change. ADRENALS: Normal bilaterally. KIDNEYS: There are parapelvic cysts bilaterally. There is no appreciable hydronephrosis or nephrolithiasis. BLADDER: The bladder is smooth in contour. PELVIC ORGANS: The prostate is diffusely enlarged. The seminal vesicles are symmetric. AORTA: There is mild tortuosity the aneurysmal dilatation noted on previous ultrasound is not evident on the current examination. The aorta. There is no aneurysmal dilatation. There is no intimal flap to suggest dissection. IVC: Unremarkable LYMPH NODES: There is no lymphadenopathy by size criteria. ABDOMINAL WALL: There are bilateral fat-containing hernias. BONES AND SOFT TISSUES: There are mild diffuse degenerative changes. OTHER: None IMPRESSION: 1. NO AORTIC ANEURYSMAL DILATATION. NO INTIMAL FLAP TO SUGGEST DISSECTION. NO PERIAORTIC HEMATOMA. 2. ENLARGED PROSTATE. 3. NO ACUTE CT PATHOLOGY OF THE VISUALIZED CHEST, ABDOMEN, OR PELVIS.
[2017-11-19 15:59] VITALS: BP 177/102
--- NOTE | 2017-11-19 16:04 | ED ---
Back Pain - HPI Summary HPI Summary: The patient is a 72 y/o male with a PMHx of AAA [facility] mild non-radiating back pain rated 5-6/10. He went to the urgent Care 3 days ago for chest pain out of concern for an upper respiratory infection. Cough and chest pain has resolved since then. He notes insomnia and fluctuating BP but denies ripping or tearing CP. He did not take any Tylenol for the pain. Pt. denies any PMHx of DM. This is jayesh Mays documenting for attending Dr. Jabier Kuo - History of Current Complaint Chief Complaint: EDBackInjuryPain Stated Complaint: CHEST/BACK PAIN Time Seen by Provider: 11/19/17 13:12 Hx Obtained From: Patient Onset/Duration: Lasting Days - Chest pain 3 days ago; back pain worse today, Still Present Onset/Duration: Worse Since - Today Severity Initially: Mild Severity Currently: Mild Pain Intensity: 3 Pain Scale Used: 0-10 Numeric - Risk Factors AAA Risk Factors: Prior AAA - Allergies/Home Medications Allergies/Adverse Reactions: Allergies Allergy/AdvReac Type Severity Reaction Status Date / Time No Known Allergies Allergy Verified 11/19/17 11:44 PMH/Surg Hx/FS Hx/Imm Hx Endocrine/Hematology History: Denies: Hx Diabetes Cardiovascular History: Reports: Hx Hypertension History: Denies: Hx Renal Disease - Surgical History Surgery Procedure, Year, and Place: VASTECTOMY, HERNIA Infectious Disease History: No Infectious Disease History: Denies: Traveled Outside the [place] in Last 30 Days - Family History Known Family History: Positive: Cardiac Disease - father of massive [place], Diabetes - Social History Occupation: Retired Lives: With Family Alcohol Use: Occasionally Substance Use Type: Reports: None Smoking Status (MU): Current Some Day Smoker Type: Cigars Amount Used/How Often: 1-2 cigars q month Review of Systems Constitutional: Other - Positive: Insomnia Positive: Other - Positive: Fluctuating BP. Negative: Chest Pain Negative: Cough Musculoskeletal: Other - Positive: Back pain All Other Systems Reviewed And Are Negative: Yes Physical Exam - Summary Physical Exam Summary: Appearance: Well appearing, no pain distress Skin: warm, dry, reflects adequate perfusion Head/face: normal Eyes: EOMI, KAREEM ENT: normal Neck: supple, non-tender Respiratory: CTA, breath sounds present Cardiovascular: RRR, pulses symmetrical Abdomen: No pulsatile mass in the abdomen Bowel Sounds: present Musculoskeletal: normal, strength/ROM intact, moves freely Neuro: normal, sensory motor intact, A&Ox3 Triage Information Reviewed: Yes Vital Signs On Initial Exam: Initial Vitals Temp Pulse Resp BP Pulse Ox 97.2 F 82 18 153/90 90 11/19/17 13:04 11/19/17 13:04 11/19/17 13:04 11/19/17 13:04 11/19/17 13:04 Vital Signs Reviewed: Yes Diagnostics - Vital Signs Vital Signs Temp Pulse Resp BP Pulse Ox 11/19/17 15:58 97.8 F 58 16 177/102 95 11/19/17 15:40 56 15 177/102 98 11/19/17 15:10 60 19 186/114 98 11/19/17 15:09 30 11/19/17 14:40 61 18 173/105 97 11/19/17 14:10 59 23 161/102 96 11/19/17 14:00 63 19 95 11/19/17 13:40 16 154/98 11/19/17 13:18 77 96 11/19/17 13:17 79 165/109 94 11/19/17 13:04 97.2 F 82 18 153/90 90 - Laboratory Lab Results: Lab Results 11/19/17 11/19/17 11/19/17 Range/Units 13:39 13:39 13:39 WBC 10.1 (3.5-10.8) 10^3/ul RBC 5.45 H (4.00-5.40) 10^6/ul Hgb 15.7 (14.0-18.0) g/dl Hct 47 (42-52) % MCV 86 (80-94) fL MCH 29 (27-31) pg MCHC 34 (31-36) g/dl RDW 14 (10.5-15) % Plt Count 228 (150-450) 10^3/ul MPV 8.4 (7.4-10.4) um3 Neut % (Auto) 73.8 (38-83) % Lymph % (Auto) 16.3 L (25-47) % Collin % (Auto) 8.0 H (0-7) % Eos % (Auto) 0.7 (0-6) % Baso % (Auto) 1.2 (0-2) % Absolute Neuts (auto) 7.5 (1.5-7.7) 10^3/ul Absolute Lymphs (auto) 1.7 (1.0-4.8) 10^3/ul Absolute Monos (auto) 0.8 (0-0.8) 10^3/ul Absolute Eos (auto) 0.1 (0-0.6) 10^3/ul Absolute Basos (auto) 0.1 (0-0.2) 10^3/ul Absolute Nucleated RBC 0 10^3/ul Nucleated RBC % 0.1 Sodium 135 (135-145) mmol/L Potassium 4.2 (3.5-5.0) mmol/L Chloride 102 (101-111) mmol/L Carbon Dioxide 23 (22-32) mmol/L Anion Gap 10 (2-11) mmol/L BUN 13 (6-24) mg/dL Creatinine 1.08 (0.67-1.17) mg/dL Est GFR ( Amer) 81.3 (>60) Est GFR (Non-Af Amer) 67.2 (>60) BUN/Creatinine Ratio 12.0 (8-20) Glucose 111 H (70-100) mg/dL Lactic Acid 1.1 (0.5-2.0) mmol/L Calcium 9.4 (8.6-10.3) mg/dL Total Bilirubin 0.90 (0.2-1.0) mg/dL AST 17 (13-39) U/L ALT 22 (7-52) U/L Alkaline Phosphatase 107 H (34-104) U/L Total Creatine Kinase 140 (10-223) U/L Troponin I 0.00 (<0.04) ng/mL Total Protein 7.7 (6.4-8.9) g/dL Albumin 4.3 (3.2-5.2) g/dL Globulin 3.4 (2-4) g/dL Albumin/Globulin Ratio 1.3 (1-3) Result Diagrams: 11/19/17 13:39 11/19/17 13:39 Lab Statement: Any lab studies that have been ordered have been reviewed, and results considered in the medical decision making process. - CT Abd/Pelvic CTA CT Interpretation: Positive (See Comments) - IMPRESSION: 1. NO AORTIC ANEURYSMAL DILATATION. NO INTIMAL FLAP TO SUGGEST DISSECTION. NO PERIAORTIC HEMATOMA. 2. ENLARGED PROSTATE. 3. NO ACUTE CT PATHOLOGY OF THE VISUALIZED CHEST, ABDOMEN, OR PELVIS. ED physician reviewed this radiology report CT Interpretation Completed By: Radiologist Chest, Abd/Pelvic CTA CT Interpretation: Positive (See Comments) - IMPRESSION: 1. NO AORTIC ANEURYSMAL DILATATION. NO INTIMAL FLAP TO SUGGEST DISSECTION. NO PERIAORTIC HEMATOMA. 2. ENLARGED PROSTATE. 3. NO ACUTE CT PATHOLOGY OF THE VISUALIZED CHEST, ABDOMEN, OR PELVIS. ED physician reviewed this radiology report CT Interpretation Completed By: Radiologist - EKG 13:37 Cardiac Rate: NL - 72 bpm EKG Rhythm: Sinus Rhythm EKG Interpretation: Normal axes and interval Back Pain Course/Dx - Course Course Of Treatment: Patient sent in for evaluation of his thoracic aorta given his chest and back pain here recently. He does have a history of abdominal aortic aneurysm. The pathology is not exactly the same with these. A CTU was used to confirm the size of his aorta from its origin. There is no thoracic dissection or in fact an abdominal aortic aneurysm. He was discharged with as needed nightly cyclobenzaprine for thoracic muscular back pain. There is no noted pneumonia etc. - Diagnoses Differential Diagnosis/HQI/PQRI: Positive: Other - Thoracic dissection, coronary artery disease, pneumonia, GI disease, muscular back pain Provider Diagnoses: Thoracic back pain Discharge - Sign-Out/Discharge Documenting (check all that apply): Patient Departure - DC - Discharge Plan Condition: Improved Disposition: HOME Prescriptions: Cyclobenzaprine TAB* [Flexeril 10 MG TAB*] 10 mg PO BEDTIME PRN #10 tab PRN Reason: muscle pain Patient Education Materials: Back Pain (ED) Referrals: Girma Herrera MD [Primary Care Provider] - Additional Instructions: Massage, ice, stretching exercises for the back discomfort. Follow up with her primary care physician and skin care therapist may help. Return if worse, new symptoms or other concerns. - Billing Disposition and Condition Condition: IMPROVED Disposition: Home
== END 2017-11-19 15:59 | disposition home or self-care (01) ==
LOC: ED 13:03
DX: M54.6 Pain in thoracic spine (principal); I71.4 Abdominal aortic aneurysm, without rupture; N40.0 Benign prostatic hyperplasia without lower urinary tract symptoms; Z82.49 Family history of ischemic heart disease and other diseases of the circulatory system; Z83.3 Family history of diabetes mellitus; Z72.0 Tobacco use; I10 Essential (primary) hypertension; F17.210 Nicotine dependence, cigarettes, uncomplicated; Z86.79 Personal history of other diseases of the circulatory system
CPT/HCPCS: 36415; 71275; 74174; 80053; 82550; 83605; 84484; 85025; 93005; 96360; 99283; Q9967

== ENCOUNTER 2017-11-20 08:12 | Emergency (ER) | payer MEDICARE, BC ==
[2017-11-20 08:28] VITALS: BP 154/99
--- NOTE | 2017-11-20 08:57 | ED ---
Back Pain - HPI Summary HPI Summary: 72 yr old male seen in the ER yesterday for work up of his back pain.Location is between the shoulder blades. He is not SOB, and no CP with this. The patient had extensive work up including CTA that did not show any dissection. He states he was given flexeril 10mg tabs, and took one last night. He states his pain is worse late at night when lying in bed. He states presently he has basically no pain at all. But is wondering what to do at night. He denies fever, chills, weakness, numbness in the legs, no bowel or bladder incontinence. - History of Current Complaint Chief Complaint: UCBackPain Stated Complaint: FOLLOW UP-SEEN YESTERDAY Time Seen by Provider: 11/20/17 08:16 Pain Intensity: 1 - Allergies/Home Medications Allergies/Adverse Reactions: Allergies Allergy/AdvReac Type Severity Reaction Status Date / Time No Known Allergies Allergy Verified 11/20/17 08:28 PMH/Surg Hx/FS Hx/Imm Hx Endocrine/Hematology History: Denies: Hx Diabetes Cardiovascular History: Reports: Hx Hypertension History: Denies: Hx Renal Disease - Surgical History Surgery Procedure, Year, and Place: VASTECTOMY, HERNIA Infectious Disease History: No Infectious Disease History: Denies: Traveled Outside the [place] in Last 30 Days - Family History Known Family History: Positive: Cardiac Disease - father of massive [place], Diabetes - Social History Alcohol Use: Occasionally Substance Use Type: Reports: None Smoking Status (MU): Current Some Day Smoker Type: Cigars Amount Used/How Often: 1-2 cigars q month Review of Systems Constitutional: Negative Negative: Fever, Chills Negative: Chest Pain Negative: Shortness Of Breath Positive: Other - back pain Negative: Weakness, Paresthesia, Numbness All Other Systems Reviewed And Are Negative: Yes Physical Exam Triage Information Reviewed: Yes Vital Signs On Initial Exam: Initial Vitals Temp Pulse Resp BP Pulse Ox 98.2 F 92 16 154/99 94 11/20/17 08:21 11/20/17 08:21 11/20/17 08:21 11/20/17 08:21 11/20/17 08:21 Vital Signs Reviewed: Yes Appearance: Positive: Well-Appearing, No Pain Distress Skin: Positive: Warm, Skin Color Reflects Adequate Perfusion Head/Face: Positive: Normal Head/Face Inspection Eyes: Positive: EOMI Neck: Positive: Nontender Respiratory/Lung Sounds: Positive: Clear to Auscultation, Breath Sounds Present Cardiovascular: Positive: RRR. Negative: Murmur Abdomen Description: Positive: Nontender Musculoskeletal: Positive: Strength/ROM Intact Neurological: Positive: Sensory/Motor Intact, Alert, Oriented to Person Place, Time, CN Intact II-III, Normal Gait, Speech Normal Psychiatric: Positive: Normal - Pawel Coma Scale Best Eye Response: 4 - Spontaneous Best Motor Response: 6 - Obeys Commands Best Verbal Response: 5 - Oriented Coma Scale Total: 15 Diagnostics - Vital Signs Vital Signs Temp Pulse Resp BP Pulse Ox 11/20/17 08:21 98.2 F 92 16 154/99 94 - Laboratory Lab Statement: Any lab studies that have been ordered have been reviewed, and results considered in the medical decision making process. Back Pain Course/Dx - Course Course Of Treatment: 72 yr old male with back pain that is resolved at this point, but is episodic, and worse with laying flat at night. I have recommended that for return of back pain he go to the ER for further work up to include an MRI of his spine to check for thoracic spine disease. The patient is following u p with his PMD on November 27. - Diagnoses Provider Diagnoses: Back pain, Hypertension Discharge - Sign-Out/Discharge Documenting (check all that apply): Patient Departure - Discharge Plan Condition: Good Disposition: HOME Patient Education Materials: Hypertension (ED), Back Pain (ED) Referrals: Girma Herrera MD [Primary Care Provider] - 1 Day Additional Instructions: Go to the ER for any worsening back pain. - Billing Disposition and Condition Condition: GOOD Disposition: Home
== END 2017-11-20 09:05 | disposition home or self-care (01) ==
LOC: UCCORT 08:12
DX: M54.9 Dorsalgia, unspecified (principal); I10 Essential (primary) hypertension; F17.210 Nicotine dependence, cigarettes, uncomplicated
CPT/HCPCS: 99211; G0463

== ENCOUNTER 2018-07-29 08:45 | Emergency (ER) | payer BC, MEDICARE, OTHER ==
--- OUTSIDE RECORDS SUMMARY | 2018-07-29 08:59 | XMS REPORT | Continuity of Care Document ---
:1945 External Reference #:[id number] Author Name Bette Chavarria Care Team Providers Name Role Phone Girma Herrera III, MD Primary Care Physician Unavailable Payers Date Identification Numbers Payment Provider Subscriber Effective: 2010 Policy Number: [id number] Medicare Yovany Pope JR PayID: [id number] [address] [place] [address] Effective: 2010 Policy Number: [id number] Facets Yovany Pope JR PayID: [id number] [address] [address] [place] [address] Advance Directives Description No Information Available Problems Date Description Provider Status Onset: 01/12/2011 Benign essential hypertension Girma Herrera M.D. Active Onset: 08/15/2012 Abdominal aortic aneurysm without Girma Herrera M.D. Active rupture Onset: 02/17/2015 Essential hypertension Girma Herrera M.D. Active Onset: 02/07/2018 Cervical spondylosis with myelopathy Thanh Lord M.D. Active Onset: 02/14/2018 Neurogenic claudication co-occurrent Thanh Lord M.D. Active and due to spinal stenosis of lumbar region Onset: 03/10/2018 Convalescence after surgery Thanh Lord M.D. Active Onset: 06/25/2018 Low back pain Thanh Lord M.D. Active Family History Date Family Member(s) Observation Comments General Diabetes General Arthritis General OR Father due to Diabetes () - complications of post-pancreatitis diabetes; ? OR. age 64 Mother due to Arthritis () - ? complications from Rx for RA; age 79. ? HTN Social History Type Date Description Comments Sex Unknown Occupation Retired Occupation part-time high school coordinator Occupation [employer] (retired) Cigarette Use Quit - Age 36 ETOH Use Drinks Alcoholic Beverages Occasionally Tobacco Use Start: Unknown End: Patient is a former Unknown smoker Smoking Status Reviewed: 07/14/18 Patient is a former smoker Exercise Exercises regularly sit-ups daily; bikes Type/Frequency 3x/week, walks Allergies, Adverse Reactions, Alerts Description No Known Drug Allergies Medications Medication Date Status Form Strength Qnty SIG Indications Ordering Provider Irbesartan 11/09/19 Active Tablets 75mg 90tab 1 by Girma Kessler 18 s mouth Sharon, every day M.D. Eliquis Active Tablets 5mg TK 1 T PO Unknown 00 bid Methylprednisolon 01/30/20 Hx TBPK 4mg 1unit use per M54.16 Girma siddiqi 18 - s direction [place], 02/08/20 s M.D. 18 Trazodone HCL 01/21/20 Hx Tablets 50mg 30tab 1 tablet G47.00 Girma Kessler 18 - s at [place], Unknown bedtime, M.D. maximum daily dose of 1 per day Tizanidine HCL 12/03/19 Hx Capsules 2mg 14cap 1 cap by M54.9 Nichole 18 - s mouth [place], 01/04/20 every 12 M.D. 18 hours Ibuprofen 12/03/19 Hx Tablets 600mg 30tab 1 tab by M54.9 Nichole 18 - s mouth [place], 01/04/20 three M.D. 18 times a day as needed Meloxicam 11/28/19 Hx Tablets 7.5mg 20tab take one M54.9 Girma EWm 18 - s tab twice [place], 12/03/19 daily as M.D. 18 needed for pain, avoid other nsaids Losartan 11/19/19 Hx Tablets 100mg 30tab 1 by Nichole Potassium 18 - s mouth [place], 11/28/19 every day M.D. 18 No Active 11/14/19 Hx Unknown Medications 18 - 11/14/19 18 Losartan 11/14/19 Hx Tablets 50mg 30tab 1 by Nichole Potassium 18 - s mouth [place], 11/19/19 every day M.D. 18 Valsartan 10/05/19 Hx Tablets 80mg 90tab 1 by Girma Kessler 18 - s mouth Sharon, 11/09/19 every day M.D. 18 No Active 05/09/19 Hx Unknown Medications 18 - 05/09/19 18 Amlodipine 05/09/19 Hx Tablets 10mg 30tab 1 by Girma Kessler Besylate 18 - s mouth Sharon, 10/05/19 every day M.D. 18 Asa 08/12/19 Hx 81mg 90uni 1 po qd Girma Kessler 09 - ts Sharon, 03/06/20 M.DWm 12 Proctocream-HC 08/04/19 Hx Cream 2.5% 30gm use as Girma Kessler 08 - directed Sharon, 02/18/20 M.DWm 15 Diovan Hx Tablets 80mg 90tab take 1 Girma E. 00 - s tablet by Sharon, 05/09/19 mouth M.D. 18 every day Oxycodone HCL Hx Tablets 5mg 45tab take 1-2 Thanh 00 - s tab by Risa, Unknown mouth M.DWm every 4 hours as needed for moderate pain Immunizations CPT Code Status Date Vaccine Lot # [id number] Given 08/24/2015 Pneumococcal Conjugate Vaccine 13 Valent For [id number] Intramuscular Use 30242 Given 08/13/2011 Pneumonia Vaccine [id number] 20434 Given 07/11/2010 Tdap - Tetanus/Diptheria/Acellular Pertussis [id number] Given 02/10/2009 Influenza Virus 3Yrs & Over 17085 Given 02/17/2008 Influenza Virus 3Yrs & Over 05203 Given 04/22/2000 Td (History By Patient) Vital Signs Date Vital Result Comment 07/14/2018 2:14pm Height 71.5 inches 5'11.50" Weight 188.00 lb Heart Rate 77 /min BP Systolic Sitting 110 mmHg BP Diastolic Sitting 74 mmHg O2 % BldC Oximetry 96 % BMI (Body Mass Index) 25.9 kg/m2 06/25/2018 1:11pm Height 71.5 inches 5'11.50" Weight 179.00 lb BP Systolic Sitting 130 mmHg BP Diastolic Sitting 86 mmHg Pain Level 2 BMI (Body Mass Index) 24.6 kg/m2 04/28/2018 9:28am Height 71.5 inches 5'11.50" Weight 179.00 lb BP Systolic Sitting 130 mmHg BP Diastolic Sitting 84 mmHg Pain Level 0 BMI (Body Mass Index) 24.6 kg/m2 03/26/2018 1:35pm Height 71.5 inches 5'11.50" Weight 179.00 lb BP Systolic Sitting 118 mmHg BP Diastolic Sitting 60 mmHg Pain Level 0 BMI (Body Mass Index) 24.6 kg/m2 03/10/2018 10:19am Height 71.5 inches 5'11.50" Weight 179.00 lb BP Systolic Sitting 140 mmHg BP Diastolic Sitting 78 mmHg Body Temperature 97.0 F Pain Level 2 BMI (Body Mass Index) 24.6 kg/m2 02/14/2018 9:50am Height 71.5 inches 5'11.50" Weight 179.00 lb BP Systolic Sitting 140 mmHg BP Diastolic Sitting 80 mmHg Pain Level 6 BMI (Body Mass Index) 24.6 kg/m2 02/07/2018 10:30am Height 71.5 inches 5'11.50" Weight 179.00 lb BP Systolic Sitting 140 mmHg BP Diastolic Sitting 94 mmHg Pain Level 6 BMI (Body Mass Index) 24.6 kg/m2 01/29/2018 4:25pm Height 71.5 inches 5'11.50" Weight 179.00 lb Heart Rate 79 /min BP Systolic Sitting 126 mmHg BP Diastolic Sitting 98 mmHg O2 % BldC Oximetry 98 % BMI (Body Mass Index) 24.6 kg/m2 01/20/2018 4:21pm Height 71.5 inches 5'11.50" Weight 182.00 lb Heart Rate 78 /min BP Systolic 130 mmHg BP Diastolic 82 mmHg O2 % BldC Oximetry 97 % BMI (Body Mass Index) 25.0 kg/m2 01/03/2018 10:55am Height 71.5 inches 5'11.50" Weight 183.00 lb Heart Rate 76 /min BP Systolic 132 mmHg BP Diastolic 78 mmHg Body Temperature 98.2 F Pain Level 5 O2 % BldC Oximetry 97 % BMI (Body Mass Index) 25.2 kg/m2 12/02/2017 1:26pm Height 71.5 inches 5'11.50" Weight 186.00 lb Heart Rate 75 /min BP Systolic Sitting 120 mmHg BP Diastolic Sitting 82 mmHg O2 % BldC Oximetry 95 % BMI (Body Mass Index) 25.6 kg/m2 11/27/2017 2:57pm Height 71.5 inches 5'11.50" Weight 189.00 lb Heart Rate 86 /min BP Systolic 134 mmHg BP Diastolic 82 mmHg O2 % BldC Oximetry 95 % BMI (Body Mass Index) 26.0 kg/m2 11/07/2017 3:19pm Height 71.5 inches 5'11.50" Weight 193.25 lb Heart Rate 81 /min BP Systolic Sitting 136 mmHg BP Diastolic Sitting 80 mmHg O2 % BldC Oximetry 96 % BMI (Body Mass Index) 26.6 kg/m2 09/03/2017 9:25am Height 71.5 inches 5'11.50" Weight 198.00 lb Heart Rate 74 /min BP Systolic Sitting 128 mmHg BP Diastolic Sitting 80 mmHg O2 % BldC Oximetry 98 % BMI (Body Mass Index) 27.2 kg/m2 05/16/2017 2:39pm Weight 194.25 lb Heart Rate 67 /min BP Systolic Sitting 138 mmHg BP Diastolic Sitting 84 mmHg O2 % BldC Oximetry 93 % 09/03/2016 12:56pm Height 70.5 inches 5'10.50" Weight 188.38 lb Heart Rate 65 /min BP Systolic 130 mmHg BP Diastolic 76 mmHg Body Temperature 98.2 F O2 % BldC Oximetry 98 % BMI (Body Mass Index) 26.6 kg/m2 08/24/2015 10:49am Height 70.5 inches 5'10.50" Weight 190.00 lb Heart Rate 62 /min BP Systolic Sitting 144 mmHg BP Diastolic Sitting 88 mmHg Body Temperature 97.9 F O2 % BldC Oximetry 98 % BMI (Body Mass Index) 26.9 kg/m2 02/17/2015 9:47am Height 70.5 inches 5'10.50" Weight 195.00 lb Heart Rate 61 /min BP Systolic 128 mmHg BP Diastolic 90 mmHg Body Temperature 98.2 F O2 % BldC Oximetry 97 % BMI (Body Mass Index) 27.6 kg/m2 08/18/2014 1:03pm Height 70.5 inches 5'10.50" Weight 190.00 lb Heart Rate 62 /min BP Systolic Sitting 142 mmHg BP Diastolic Sitting 82 mmHg Body Temperature 98.6 F O2 % BldC Oximetry 97 % BMI (Body Mass Index) 26.9 kg/m2 07/27/2014 1:13pm Weight 190.00 lb Heart Rate 68 /min BP Systolic Sitting 128 mmHg BP Diastolic Sitting 82 mmHg Body Temperature 98.7 F O2 % BldC Oximetry 98 % 07/22/2014 9:46am Weight 193.00 lb Heart Rate 67 /min BP Systolic Sitting 128 mmHg BP Diastolic Sitting 88 mmHg O2 % BldC Oximetry 96 % 02/01/2014 12:56pm Weight 193.75 lb Heart Rate 88 /min BP Systolic Sitting 138 mmHg 148/90 initially BP Diastolic Sitting 90 mmHg 148/90 initially Body Temperature 98.0 F 09/21/2013 9:06am Height 72 inches 6'0" Weight 190.00 lb Heart Rate 76 /min BP Systolic 120 mmHg BP Diastolic 78 mmHg BMI (Body Mass Index) 25.8 kg/m2 09/04/2013 2:49pm Height 70.5 inches 5'10.50" Weight 194.50 lb Heart Rate 64 /min BP Systolic Sitting 152 mmHg BP Diastolic Sitting 100 mmHg Body Temperature 98.5 F BMI (Body Mass Index) 27.5 kg/m2 08/25/2013 12:54pm BP Systolic 122 mmHg BP Diastolic 80 mmHg 08/17/2013 12:51pm Height 70.5 inches 5'10.50" Weight 191.50 lb Heart Rate 104 /min BP Systolic Sitting 130 mmHg BP Diastolic Sitting 86 mmHg Body Temperature 98.5 F BMI (Body Mass Index) 27.1 kg/m2 02/16/2013 9:52am Height 70.5 inches 5'10.50" Weight 193.00 lb Heart Rate 60 /min BP Systolic Sitting 146 mmHg 158/102 BP Diastolic Sitting 96 mmHg 158/102 BMI (Body Mass Index) 27.3 kg/m2 08/15/2012 9:20am Height 70.75 inches 5'10.75" Weight 190.25 lb Heart Rate 70 /min BP Systolic Sitting 139 mmHg 148/84 initially BP Diastolic Sitting 92 mmHg 148/84 initially BMI (Body Mass Index) 26.7 kg/m2 03/06/2012 11:50am Height 70.5 inches 5'10.50" Weight 189.00 lb Heart Rate 64 /min BP Systolic Sitting 120 mmHg BP Diastolic Sitting 94 mmHg BMI (Body Mass Index) 26.7 kg/m2 08/29/2011 1:40pm Height 70.5 inches 5'10.50" Weight 190.00 lb Heart Rate 70 /min BP Systolic 138 mmHg BP Diastolic 88 mmHg Body Temperature 98.5 F BMI (Body Mass Index) 26.9 kg/m2 08/13/2011 10:23am Height 70.5 inches 5'10.50" Weight 191.50 lb Heart Rate 60 /min BP Systolic Sitting 132 mmHg BP Diastolic Sitting 88 mmHg Body Temperature 97.3 F BMI (Body Mass Index) 27.1 kg/m2 06/26/2011 3:36pm Height 70.5 inches 5'10.50" Weight 194.00 lb Heart Rate 76 /min BP Systolic Sitting 140 mmHg BP Diastolic Sitting 82 mmHg BMI (Body Mass Index) 27.4 kg/m2 01/12/2011 10:08am Height 70.5 inches 5'10.50" Weight 195.75 lb Heart Rate 72 /min BP Systolic Sitting 154 mmHg BP Diastolic Sitting 92 mmHg BMI (Body Mass Index) 27.7 kg/m2 07/11/2010 10:34am Height 72 inches 6'0" Weight 195.00 lb Heart Rate 76 /min BP Systolic Sitting 120 mmHg BP Diastolic Sitting 72 mmHg BMI (Body Mass Index) 26.4 kg/m2 05/30/2010 10:45am Weight 195.00 lb Heart Rate 69 /min BP Systolic Sitting 118 mmHg BP Diastolic Sitting 84 mmHg O2 % BldC Oximetry 97 % 12/21/2009 9:48am Weight 191.00 lb Heart Rate 62 /min BP Systolic 124 mmHg BP Diastolic 90 mmHg 06/20/2009 9:20am Height 71 inches 5'11" Weight 196.00 lb Heart Rate 80 /min BP Systolic Sitting 120 mmHg BP Diastolic Sitting 80 mmHg BMI (Body Mass Index) 27.3 kg/m2 12/21/2008 9:51am Height 71 inches 5'11" Weight 191.00 lb Heart Rate 72 /min BP Systolic Sitting 120 mmHg BP Diastolic Sitting 88 mmHg BMI (Body Mass Index) 26.6 kg/m2 08/11/2008 9:47am Height 71 inches 5'11" Weight 191.00 lb up 7# Heart Rate 64 /min BP Systolic Sitting 120 mmHg BP Diastolic Sitting 90 mmHg BMI (Body Mass Index) 26.6 kg/m2 12/01/2007 11:12am Height 71 inches 5'11" Weight 184.00 lb Heart Rate 60 /min BP Systolic Sitting 146 mmHg BP Diastolic Sitting 86 mmHg BMI (Body Mass Index) 25.7 kg/m2 07/10/2007 11:40am Height 71 inches 5'11" Heart Rate 60 /min BP Systolic Sitting 118 mmHg BP Diastolic Sitting 88 mmHg 06/02/2007 10:29am Height 71 inches 5'11" Weight 188.00 lb Heart Rate 136 /min BP Systolic Sitting 78 mmHg BMI (Body Mass Index) 26.2 kg/m2 12/04/2006 10:28am Height 71 inches 5'11" Weight 182.00 lb Heart Rate 56 /min BP Systolic Sitting 116 mmHg BP Diastolic Sitting 88 mmHg BMI (Body Mass Index) 25.4 kg/m2 Results Test Date Facility Test Result H/L Range Note CBC Auto Diff 02/20/2018 [facility] White Blood 8.3 10^3/uL N 3.5-10.[address] [place] [address] [phone] Red Blood Count 5.68 10^6/uL High 4.00-5.40 Hemoglobin 16.6 g/dL N 14.0-18.0 Hematocrit 49 % N 42-52 Mean Corpuscular Volume 86 fL N 80-94 Mean Corpuscular Hemoglobin 29 pg N 27-31 Mean Corpuscular HGB Conc 34 g/dL N 31-36 Red Cell Distribution Width 16 % High 10.5-15 Platelet Count 200 10^3/uL N 150-450 Mean Platelet Volume 9.3 um3 N 7.4-10.4 Abs Neutrophils 5.8 10^3/uL N 1.5-7.7 Abs Lymphocytes 1.5 10^3/uL N 1.0-4.8 Abs Monocytes 0.7 10^3/uL N 0-0.8 Abs Eosinophils 0.2 10^3/uL N 0-0.6 Abs Basophils 0.1 10^3/uL N 0-0.2 Abs Nucleated RBC 0 10^3/uL Granulocyte % 70.0 % N 38-83 Lymphocyte % 18.7 % Low 25-47 Monocyte % 8.1 % High 0-7 Eosinophil % 2.4 % N 0-6 Basophil % 0.8 % N 0-2 Nucleated Red Blood Cells % 0.2 Basic Metabolic Panel 02/20/2018 [facility] Sodium 137 mmol/L N 135-[address] [place] [address] [phone] Potassium 3.9 mmol/L N 3.5-5.0 Chloride 102 mmol/L N 101-111 Co2 Carbon Dioxide 27 mmol/L N 22-32 Anion Gap 8 mmol/L N 2-11 Glucose 76 mg/dL N 70-100 Blood Urea Nitrogen 15 mg/dL N 6-24 Creatinine 1.00 mg/dL N 0.67-1.17 BUN/Creatinine Ratio 15.0 N 8-20 Calcium 9.1 mg/dL N 8.6-10.3 Egfr Non- 73.5 >60 Egfr 88.9 >60 1 Laboratory test 02/20/2018 [facility] TSH (Thyroid 2.21 mcIU/mL N 0.34-5.[address] Stim Horm) [place] [address] [phone] Laboratory test 11/19/2017 [facility] Lactic Acid 1.1 mmol/L N 0.5-2.0 [address] [place] [address] [phone] CBC Auto Diff 11/19/2017 [facility] White Blood 10.1 10^3/uL N 3.5-10.[address] [place] [address] [phone] Red Blood Count 5.45 10^6/uL High 4.00-5.40 Hemoglobin 15.7 g/dL N 14.0-18.0 Hematocrit 47 % N 42-52 Mean Corpuscular Volume 86 fL N 80-94 Mean Corpuscular Hemoglobin 29 pg N 27-31 Mean Corpuscular HGB Conc 34 g/dL N 31-36 Red Cell Distribution Width 14 % N 10.5-15 Platelet Count 228 10^3/uL N 150-450 Mean Platelet Volume 8.4 um3 N 7.4-10.4 Abs Neutrophils 7.5 10^3/uL N 1.5-7.7 Abs Lymphocytes 1.7 10^3/uL N 1.0-4.8 Abs Monocytes 0.8 10^3/uL N 0-0.8 Abs Eosinophils 0.1 10^3/uL N 0-0.6 Abs Basophils 0.1 10^3/uL N 0-0.2 Abs Nucleated RBC 0 10^3/uL Granulocyte % 73.8 % N 38-83 Lymphocyte % 16.3 % Low 25-47 Monocyte % 8.0 % High 0-7 Eosinophil % 0.7 % N 0-6 Basophil % 1.2 % N 0-2 Nucleated Red Blood Cells % 0.1 Comp Metabolic Panel 11/19/2017 [facility] Sodium 135 mmol/L N 135-[address] [place] [address] [phone] Chloride 102 mmol/L N 101-111 Co2 Carbon Dioxide 23 mmol/L N 22-32 Glucose 111 mg/dL High 70-100 Blood Urea Nitrogen 13 mg/dL N 6-24 Creatinine 1.08 mg/dL N 0.67-1.17 BUN/Creatinine Ratio 12.0 N 8-20 Calcium 9.4 mg/dL N 8.6-10.3 Total Protein 7.7 g/dL N 6.4-8.9 Albumin 4.3 g/dL N 3.2-5.2 Globulin 3.4 g/dL N 2-4 Albumin/Globulin Ratio 1.3 N 1-3 Total Bilirubin 0.90 mg/dL N 0.2-1.0 Alkaline Phosphatase 107 U/L High 34-104 Alt 22 U/L N 7-52 Egfr Non- 67.2 >60 Egfr 81.3 >60 3 Potassium 4.2 mmol/L N 3.5-5.0 Anion Gap 10 mmol/L N 2-11 Ast 17 U/L N 13-39 Laboratory test 11/19/2017 [facility] Creatine 140 U/L N 10- [address] Kinase(CK) [place] [address] [phone] Troponin-I (TnI) 0.00 ng/mL <0.04 Basic Metabolic Panel 10/17/2017 [facility] Sodium 140 mmol/L N 135-[address] [place] [address] [phone] Potassium 4.3 mmol/L N 3.5-5.0 Chloride 107 mmol/L N 101-111 Co2 Carbon Dioxide 25 mmol/L N 22-32 Anion Gap 8 mmol/L N 2-11 Glucose 82 mg/dL N 70-100 Blood Urea Nitrogen 14 mg/dL N 6-24 Creatinine 1.23 mg/dL High 0.67-1.17 BUN/Creatinine Ratio 11.4 N 8-20 Calcium 9.1 mg/dL N 8.6-10.3 Egfr Non- 58.0 >60 Egfr 70.2 >60 4 Basic Metabolic 09/02/2017 [facility] Sodium 136 mmol/L Low 139-145 Panel [address] [place] [address] [phone] Potassium 4.2 mmol/L N 3.5-5.0 Chloride 104 mmol/L N 101-111 Co2 Carbon Dioxide 21 mmol/L Low 22-32 Anion Gap 11 mmol/L N 2-11 Glucose 92 mg/dL N 70-100 Blood Urea Nitrogen 15 mg/dL N 6-24 Creatinine 1.22 mg/dL High 0.67-1.17 BUN/Creatinine Ratio 12.3 N 8-20 Calcium 9.6 mg/dL N 8.6-10.3 Egfr Non- 58.6 >60 Egfr 75.3 >60 5 Comp Metabolic Panel 09/06/2016 [facility] Sodium 139 mmol/L N 133-145 [address] [place] [address] [phone] Potassium 4.5 mmol/L N 3.5-5.0 Chloride 108 mmol/L N 101-111 Co2 Carbon Dioxide 25 mmol/L N 22-32 Anion Gap 6 mmol/L N 2-11 Glucose 94 mg/dL N 70-100 Blood Urea Nitrogen 20 mg/dL N 6-24 Creatinine 1.47 mg/dL High 0.67-1.17 BUN/Creatinine Ratio 13.6 N 8-20 Calcium 9.0 mg/dL N 8.6-10.3 Total Protein 6.7 g/dL N 6.4-8.9 Albumin 4.1 g/dL N 3.2-5.2 Globulin 2.6 g/dL N 2-4 Albumin/Globulin Ratio 1.6 N 1-3 Total Bilirubin 0.60 mg/dL N 0.2-1.0 Alkaline Phosphatase 97 U/L N 34-104 Alt 15 U/L N 7-52 Ast 19 U/L N 13-39 Egfr Non- 47.4 N >60 Egfr 60.9 N >60 6 CMP Panel 08/19/2015 [facility] Sodium 139 mmol/L N 133-145 [address] [place] [address] [phone] Potassium 4.4 mmol/L N 3.5-5.0 Chloride 105 mmol/L N 101-111 Co2 Carbon Dioxide 28 mmol/L N 22-32 Anion Gap 6 mmol/L N 2-11 Glucose 93 mg/dL N 70-100 Blood Urea Nitrogen 17 mg/dL N 6-24 Creatinine 1.35 mg/dL High 0.67-1.17 BUN/Creatinine Ratio 12.6 N 8-20 Calcium 9.0 mg/dL N 8.6-10.3 Total Protein 6.8 g/dL N 6.4-8.9 Albumin 4.2 g/dL N 3.2-5.2 Globulin 2.6 g/dL N 2-4 Albumin/Globulin Ratio 1.6 N 1-3 Total Bilirubin 0.60 mg/dL N 0.2-1.0 Alkaline Phosphatase 91 U/L N 34-104 Alt 23 U/L N 7-52 Ast 29 U/L N 13-39 Egfr Non- 52.4 N >60 Egfr 67.4 N >60 7 Lipid Panel 08/19/2015 [facility] Triglycerides 154 mg/dL N 8 [address] [place] [address] [phone] Cholesterol 154 mg/dL N 9 HDL Cholesterol 38.9 mg/dL N 10 LDL Cholesterol 84 mg/dL N 11 Comp Metabolic Panel 08/09/2014 [facility] Sodium 134 mmol/L N 133-145 [address] [place] [address] [phone] Potassium 4.3 mmol/L N 3.5-5.0 Chloride 104 mmol/L N 101-111 Co2 Carbon Dioxide 25 mmol/L N 22-32 Anion Gap 5 mmol/L N 2-11 Glucose 85 mg/dL N 70-100 Blood Urea Nitrogen 17 mg/dL N 6-24 Creatinine 1.16 mg/dL N 0.67-1.17 BUN/Creatinine Ratio 14.7 N 8-20 Calcium 8.8 mg/dL N 8.6-10.3 Total Protein 6.6 g/dL N 6.4-8.9 Albumin 4.3 g/dL N 3.2-5.2 Globulin 2.3 g/dL N 2-4 Albumin/Globulin Ratio 1.9 N 1-3 Total Bilirubin 1.00 mg/dL N 0.2-1.0 Alkaline Phosphatase 91 U/L N 34-104 Alt 20 U/L N 7-52 Ast 26 U/L N 13-39 Egfr Non- 62.6 N >60 Egfr 80.5 N >60 12 Lipid Profile 08/09/2014 [facility] Triglycerides 129 mg/dL N 13 (Trig/Chol/HDL) [address] [place] [address] [phone] Cholesterol 161 mg/dL N 14 HDL Cholesterol 40.8 mg/dL N 15 LDL Cholesterol 94 mg/dL N 16 CBC Auto Diff 08/07/2013 [facility] White Blood 6.8 10^3/uL N 4.8-10.[address] [place] [address] [phone] Red Blood Count 5.66 10^6/uL High 4.0-5.4 Hemoglobin 16.5 g/dL N 14.0-18.0 Hematocrit 49 % N 42-52 Mean Corpuscular Volume 87 fL N 80-94 Mean Corpuscular Hemoglobin 29 pg N 27-31 Mean Corpuscular HGB Conc 34 g/dL N 31-36 Red Cell Distribution Width 14 % N 10.5-15 Platelet Count 173 10^3/uL N 150-450 Mean Platelet Volume 9 um3 N 7.4-10.4 Abs Neutrophils 4.5 10^3/uL N 1.5-7.7 Abs Lymphocytes 1.7 10^3/uL N 1.0-4.8 Abs Monocytes 0.4 10^3/uL N 0-0.8 Abs Eosinophils 0.2 10^3/uL N 0-0.6 Abs Basophils 0 10^3/uL N 0-0.2 Abs Nucleated RBC 0.01 10^3/uL N Granulocyte % 65.2 % N 38-83 Lymphocyte % 25.1 % N 25-47 Monocyte % 6.2 % N 1-9 Eosinophil % 2.9 % N 0-6 Basophil % 0.6 % N 0-2 Nucleated Red Blood Cells % 0.1 N Comp Metabolic Panel 08/07/2013 [facility] Sodium 139 mmol/L N 133-[address] [place] [address] [phone] Potassium 4.6 mmol/L N 3.7-5.6 Chloride 105 mmol/L N 101-111 Co2 Carbon Dioxide 28 mmol/L N 22-32 Anion Gap 6 mmol/L N 2-11 Glucose 86 mg/dL N 70-100 Blood Urea Nitrogen 16 mg/dL N 6-24 Creatinine 1.20 mg/dL High 0.67-1.17 BUN/Creatinine Ratio 13.3 N 8-20 Calcium 8.9 mg/dL N 8.6-10.3 Total Protein 6.4 g/dL N 6.4-8.9 Albumin 4.2 g/dL N 3.2-5.2 Globulin 2.2 g/dL N 2-4 Albumin/Globulin Ratio 1.9 N 1-3 Total Bilirubin 0.60 mg/dL N 0.2-1.0 Alkaline Phosphatase 88 U/L N 34-104 Alt 21 U/L N 7-52 Ast 21 U/L N 13-39 Egfr Non- 60.4 N >60 Egfr 77.7 N >60 17 Lipid Profile 08/07/2013 [facility] Triglycerides 127 mg/dL N 18 (Trig/Chol/HDL) [address] [place] [address] [phone] Cholesterol 160 mg/dL N 19 HDL Cholesterol 38.2 mg/dL N 20 LDL Cholesterol 96 mg/dL N 21 Laboratory 08/07/2013 [facility] Hepatitis C Nonreactive N Nonreactive test finding [address] [facility] [place] [address] [phone] Basic 08/11/2012 [facility] Sodium 138 mmol/L 133-[address] [place] [address] [phone] Potassium 4.6 mmol/L 3.5-5.0 Chloride 107 mmol/L 101-111 Co2 Carbon Dioxide 25.0 mmol/L 22-32 Anion Gap 6.0 mmol/L 2-11 Glucose 127 mg/dL High 70-100 Blood Urea Nitrogen 16 mg/dL 6-24 Creatinine 1.20 mg/dL 0.50-1.40 BUN/Creatinine Ratio 13.3 8-20 Calcium 9.4 mg/dL 8.1-9.9 Egfr Non- 60.6 >60 Egfr 77.[address] [facility] 08/13/2011 [facility] TSH 1.38 MIU/ML 0.34- 5.60 Panel [address] [place] [address] [phone] CMP Panel 08/13/2011 [facility] Sodium 138 mmol/L 135-145 [address] [place] [address] [phone] Potassium 4.1 mmol/L 3.5-5.0 Chloride 108 mmol/L 101-111 Co2 (Carbon Dioxide) 25.0 mmol/L 22-32 Anion Gap 5.0 mmol/L 2-11 23 Glucose 91 mg/dL 70-100 BUN 15 mg/dL 6-24 Creatinine 1.1 mg/dL 0.50-1.40 One Over Creatinine 0.90 BUN/Creatinine Ratio 13.6 8-20 Calcium 8.5 mg/dL 8.1-9.9 Total Protein 6.5 GM/DL 6.2-8.1 Albumin 3.8 GM/DL 3.2-5.2 Globulin 2.7 GM/DL 2-4 Albumin/Globulin Ratio 1.4 1-3 Bilirubin Total 0.9 mg/dL 0.4-1.5 24 Alkaline Phosphatase 92 U/L 39-117 Alt (SGPT) 21 U/L 17-63 Ast (Sgot) 22 U/L 12-42 eGFR Non- 67.2 > 60 eGFR 86.4 > 60 25 Lipid Panel 08/13/2011 [facility] Triglyceride 106 mg/dL 40- 200 [address] [place] [address] [phone] Cholesterol 147 mg/dL Less Than 200 26 High Density Lipoprotein 35 mg/dL Low 40-60 27 Cholesterol/HDL Ratio 4.20 AVERAGE 1-4.97 Low Density Lipoprotein 91 mg/dL Less Than 100 28 Laboratory test 08/13/2011 [facility] PSA 1.32 NG/ML 0-4 29 finding [address] [place] [address] [phone] CBC W/Manual Diff 08/13/2011 [facility] White Blood 6.3 CUMM 4.8-10.8 [address] [facility] [place] [address] [phone] Red Cell Count 5.15 CUMM 4.6-6.2 Hemoglobin [...] Count 4.10 RBC Morphology NORMAL Laboratory test 06/28/2009 [facility] PSA Screening 1.16 NG/ML 0-4 [address] [place] [address] [phone] CBC With 06/28/2009 [facility] White Blood 10.3 CUMM 4.8- 10.[address] [place] [address] [phone] Red Cell Count 5.61 CUMM 4.6-6.2 Hemoglobin [...] Eosinophils 0.3 0-0.6 Abs Basophils 0 0-0.2 31 Lipid Profile 06/28/2009 [facility] Triglyceride 68 mg/dL 40- 200 (Trig/Chol/HDL) [address] [place] [address] [phone] Cholesterol 174 mg/dL Less Than 200 32 High Density Lipoprotein 39 mg/dL Low 40-60 33 Cholesterol/HDL Ratio 4.46 AVERAGE 1-4.97 Low Density Lipoprotein 121 mg/dL High Less Than 100 34 Comp Metabolic Panel 06/28/2009 [facility] Sodium 136 mmol/L 135-[address] [place] [address] [phone] Potassium 4.1 mmol/L 3.5-5.0 Chloride 104 mmol/L 101-111 Co2 (Carbon Dioxide) 26.0 mmol/L 22-32 Anion Gap 6.0 mmol/L 2-11 35 Glucose 90 mg/dL 70-100 36 BUN 15 mg/dL 6-24 Creatinine 1.20 mg/dL 0.50-1.40 One Over Creatinine 0.80 BUN/Creatinine Ratio 12.5 8-20 Calcium 9.0 mg/dL 8.1-9.9 37 Total Protein 6.4 GM/DL 6.2-8.1 Albumin 3.8 GM/DL 3.2-5.2 Globulin 2.6 GM/DL 2-4 Albumin/Globulin Ratio 1.5 1-3 Bilirubin Total 0.9 mg/dL 0.4-1.5 38 Alkaline Phosphatase 112 U/L 39-117 Alt (SGPT) 22 U/L 17-63 Ast (Sgot) 20 U/L 12-42 eGFR Non- 65.0 > 60 eGFR 78.6 > [address] Herrera's Lab Panel 06/28/2009 [facility] TSH 1.72 MIU/ML 0.34-5.60 [address] [place] [address] [phone] Laboratory test 08/09/2008 [facility] TSH 0.93 MIU/ML 0.34- 5.60 finding [address] [place] [address] [phone] PSA Screening 1.32 NG/ML 0-4 40 Lipid Profile 08/09/2008 [facility] Triglyceride 99 mg/dL 40- 200 (Trig/Chol/HDL) [address] [place] [address] [phone] Cholesterol 198 mg/dL Less Than 200 41 High Density Lipoprotein 42 mg/dL 40-60 42 Cholesterol/HDL Ratio 4.71 AVERAGE 1-4.97 Low Density Lipoprotein 136 mg/dL High Less Than 100 43 Comp Metabolic Panel 08/09/2008 [facility] Sodium 138 mmol/L 135-145 [address] [place] [address] [phone] Potassium 4.2 mmol/L 3.5-5.0 Chloride 106 mmol/L 101-111 Co2 (Carbon Dioxide) 26.0 mmol/L 22-32 Anion Gap 6.0 mmol/L 2-11 44 Glucose 94 mg/dL 70-100 45 BUN 12 mg/dL 6-24 Creatinine 1.20 mg/dL 0.50-1.40 One Over Creatinine 0.80 BUN/Creatinine Ratio 10.0 8-20 Calcium 9.1 mg/dL 8.1-9.9 46 Total Protein 6.6 GM/DL 6.2-8.1 Albumin 4.3 GM/DL 3.2-5.2 Globulin 2.3 GM/DL 2-4 Albumin/Globulin Ratio 1.9 1-3 Bilirubin Total 1.1 mg/dL 0.4-1.5 Alkaline Phosphatase 107 U/L 39-117 Alt (SGPT) 33 U/L 17-63 Ast (Sgot) 33 U/L 12-42 CBC With 08/09/2008 [facility] White Blood 6.4 CUMM 4.8-10.8 Electronic Diff [address] [place] [address] [phone] Red Cell Count 5.56 CUMM 4.6-6.2 Hemoglobin [...] Eosinophils 0.2 0-0.6 Abs Basophils 0 0-0.2 Laboratory test 05/27/2007 [facility] PSA Screening 1.09 NG/ML 0-4 47, [address] [place] [address] [phone] TSH 0.74 MIU/ML 0.34-5.60 Lipid Profile 05/27/2007 [facility] Cholesterol/HDL 4.30 1- 4.97 (Trig/Chol/HDL) [address] Ratio AVERAGE [place], [place] [id number] [phone] Cholesterol 172 mg/dL Less Than 200 49 Triglyceride 95 mg/dL 40-200 High Density Lipoprotein 40 mg/dL 40-60 Low Density Lipoprotein 113 mg/dL High Less Than 100 50 Comp Metabolic Panel 05/27/2007 [facility] One Over Creatinine 0.[address] [place] [address] [phone] Anion Gap 1.0 mmol/L Low 2-11 51 Albumin/Globulin Ratio 1.3 1-3 Albumin 4.0 GM/DL 3.2-5.2 Alkaline Phosphatase 97 U/L 39-117 Alt (SGPT) 25 U/L 17-63 Ast (Sgot) 24 U/L 12-42 BUN 20 mg/dL 6-24 Calcium 9.2 mg/dL 8.7-10.2 Chloride 107 mmol/L 101-111 Co2 (Carbon Dioxide) 30.0 mmol/L 22-32 Globulin 3.1 GM/DL 2-4 Glucose 93 mg/dL 70-105 Potassium 4.5 mmol/L 3.5-5.0 Sodium 138 mmol/L 135-145 Bilirubin Total 0.7 mg/dL 0.4-1.5 Total Protein 7.1 GM/DL 6.2-8.1 BUN/Creatinine Ratio 15.4 8-20 Creatinine 1.3 mg/dL 0.5-1.4 CBC With 05/27/2007 [facility] White Blood 7.6 CUMM 4.8-10.8 Electronic Diff [address] [place] [address] [phone] Abs Basophils 0 0-0.2 Abs Eosinophils 0.2 0-0.6 Absolute Neutrophil Count 5.2 1.5-7.7 Abs Lymphs 1.7 1.0-4.8 Abs Mononuclear 0.5 0-0.8 Basophil % 0.3 % 0-2 Hematocrit 44 % 42-52 Hemoglobin 15.1 g/dL 14.0-18.0 Eosinophil % 2.6 % 0-6 Gran % 67.8 % 38-83 Lymph % 22.6 % 20-45 Mean Corpuscular HGB Cone 34 g/dL 32-36 Mean Corpuscular Hemoglob 28 pg 27-31 Mean Corpuscular Volume 83 um3 80-94 Mean Platelet Volume 9.3 um3 7.4-10.4 Mononuclear % 6.7 % 1-9 Platelet Count 189 CUMM 150-450 Red Cell Count 5.33 CUMM 4.6-6.2 Redcell Distribution WDTH 14 % 10.5-15 1 Because ethnic data is not always [...] 5 Kidney failure <15 (or dialysis) 2 [facility] Severe Sepsis and Septic Shock Management Bundle Measure requires all lactic acids initially measuring >2.0 mmol/L be repeated. 3 Because ethnic data is not always [...] 5 Kidney failure <15 (or dialysis) 5 Because ethnic data is not always readily [...] 15-29 5 Kidney failure <15 (or dialysis) 6 Because ethnic data is not always readily [...] 15-29 5 Kidney failure <15 (or dialysis) 7 Because ethnic data is not always readily [...] 15-29 5 Kidney failure <15 (or dialysis) 8 Desirable <150 Borderline high 150-199 High 200-499 Very High >500 9 Desirable <200 Borderline high 200-239 High >239 10 Low <40 Desirable: 40-60 High: >60 11 Desirable: <100 mg/dL Near Optimal: 100-129 mg/dL Borderline High: 130-159 mg/dL High: 160-189 mg/dL Very High: >189 mg/dL 12 Because ethnic data is not always readily [...] 15-29 5 Kidney failure <15 (or dialysis) 13 Desirable <150 Borderline high 150-199 High 200-499 Very High >500 14 Desirable <200 Borderline high 200-239 High >239 15 Low <40 Desirable: 40-60 High: >60 16 Desirable: <100 mg/dL Near Optimal: 100-129 mg/dL Borderline High: 130-159 mg/dL High: 160-189 mg/dL Very High: >189 mg/dL 17 Because ethnic data is not always readily [...] 15-29 5 Kidney failure <15 (or dialysis) 18 Desirable <150 Borderline high 150-199 High 200-499 Very High >500 19 Desirable <200 Borderline high 200-239 High >239 20 Low <40 Desirable: 40-60 High: >60 21 Desirable <100 Near Optimal 100-129 Borderline high 130-159 High 160-189 Very High >189 22 Because ethnic data is not always readily [...] 15-29 5 Kidney failure <15 (or dialysis) 23 Anion gap measurement may be of limited value in the presence of any alkalosis, especially in a combined acid base disorder. . 24 A metabolite of Naproxen, O-desmethylnaproxen, has been shown to interfere with the Jendrassik-Lane method for measuring total bilirubin. Samples from patients who have taken Naproxen have shown spurious elevation in total bilirubin levels. 25 Because ethnic data is not always readily [...] 15-29 5 Kidney failure <15 (or dialysis) 26 CHOLESTEROL INTERPRETATION: Desirable: Less than 200 MG/DL Borderline-High Risk: 200-239 MG/DL High-Risk: 240 MG/DL and over 27 HDL INTERPRETATION: Undesirable: High Risk: Less than 40 MG/DL Desirable: Low Risk: Greater than 60 MG/DL 28 LDL INTERPRETATION: Low Risk Optimal Level: LDL Less than 100 MG/DL Near or Above Optimal: LDL 100-129 MG/DL Borderline High Risk: LDL 130-159 MG/DL High Risk: LDL 160-189 MG/DL Very High Risk: LDL Greater than 189 MG/DL 29 * SERUM LEVELS OF PSA MEASURED USING THE GENESIS [employer] ACCESS HYBRITECH IMMUNOASSAY SHOULD NOT BE INTERPRETED ABSOLUTE EVIDENCE OF THE PRESENCE OR ABSENCE OF DISEASE. THE PSA VALUE SHOULD BE USED IN CONJUNCTION WITH OTHER PERTINENT CLINICAL DIAGNOSTIC PROCEDURES. The values obtained with different assay methods or kits cannot be used interchangeably. 30 * SERUM LEVELS OF PSA MEASURED USING THE GENESIS [employer] ACCESS HYBRITECH IMMUNOASSAY SHOULD NOT BE INTERPRETED ABSOLUTE EVIDENCE OF THE PRESENCE OR ABSENCE OF DISEASE. THE PSA VALUE SHOULD BE USED IN CONJUNCTION WITH OTHER PERTINENT CLINICAL DIAGNOSTIC PROCEDURES. 31 Lymphopenia % 32 CHOLESTEROL INTERPRETATION: Desirable: Less than 200 MG/DL Borderline-High Risk: 200-239 MG/DL High-Risk: 240 MG/DL and over 33 HDL INTERPRETATION: Undesirable: High Risk: Less than 40 MG/DL Desirable: Low Risk: Greater than 60 MG/DL 34 LDL INTERPRETATION: Low Risk Optimal Level: LDL Less than 100 MG/DL Near or Above Optimal: LDL 100-129 MG/DL Borderline High Risk: LDL 130-159 MG/DL High Risk: LDL 160-189 MG/DL Very High Risk: LDL Greater than 189 MG/DL 35 Anion gap measurement may be of limited value in the presence of any alkalosis, especially in a combined acid base disorder. . 36 Note change in reference range as of 12/11/07. The change was based on recommendations from the [employer]. 37 Please note change in reference range effective 07 . 38 A metabolite of Naproxen, O-desmethylnaproxen, has been shown to interfere with the Jendrassik-[place] method for measuring total bilirubin. Samples from patients who have taken Naproxen have shown spurious elevation in total bilirubin levels. 39 Because ethnic data is not always readily [...] 15-29 5 Kidney failure <15 (or dialysis) 40 * SERUM LEVELS OF PSA MEASURED USING THE [employer] ACCESS HYBRITECH IMMUNOASSAY SHOULD NOT BE INTERPRETED ABSOLUTE EVIDENCE OF THE PRESENCE OR ABSENCE OF DISEASE. THE PSA VALUE SHOULD BE USED IN CONJUNCTION WITH OTHER PERTINENT CLINICAL DIAGNOSTIC PROCEDURES. 41 CHOLESTEROL INTERPRETATION: Desirable: Less than 200 MG/DL Borderline-High Risk: 200-239 MG/DL High-Risk: 240 MG/DL and over 42 HDL INTERPRETATION: Undesirable: High Risk: Less than 40 MG/DL Desirable: Low Risk: Greater than 60 MG/DL 43 LDL INTERPRETATION: Low Risk Optimal Level: LDL Less than 100 MG/DL Near or Above Optimal: LDL 100-129 MG/DL Borderline High Risk: LDL 130-159 MG/DL High Risk: LDL 160-189 MG/DL Very High Risk: LDL Greater than 189 MG/DL 44 Anion gap measurement may be of limited value in the presence of any alkalosis, especially in a combined acid base disorder. . 45 Note change in reference range as of 12/11/07. The change was based on recommendations from the [employer]. 46 Please note change in reference range effective 07 . 47 PATIENT MAY HAVE RESULTS PER DOCTOR'S AUTHORIZATION. Questions regarding this report should be directed to your doctor. 48 * SERUM LEVELS OF PSA MEASURED USING THE [employer] ACCESS HYBRITECH IMMUNOASSAY SHOULD NOT BE INTERPRETED ABSOLUTE EVIDENCE OF THE PRESENCE OR ABSENCE OF DISEASE. THE PSA VALUE SHOULD BE USED IN CONJUNCTION WITH OTHER PERTINENT CLINICAL DIAGNOSTIC PROCEDURES. 49 Classification: Desirable . 50 CALCULATED LDL APPROXIMATES THE VALUE OF A DIRECT LDL MEASUREMENT. Classification: Near or above optimal . 51 Anion gap measurement may be of limited value in the presence of any alkalosis, especially in a combined acid base disorder. . Procedures Date Code Description Status 02/25/2018 65237 Rae/Facet/Foraminotomy;Ea Addl Segment; Cerv, Thora, Completed Or Lumbar 02/25/2018 54296 Rae/Facet/Foraminotomy;Ea Addl Segment; Cerv, Thora, Completed Or Lumbar 02/25/2018 11588 Rae/Facet/Foraminotomy;Vertebral Segment; Lumbar Completed 02/25/2018 47800 Rae/Facet/Foraminotomy;Vertebral Segment; Lumbar Completed 02/20/2018 77298 EKG, Interpretation Only Completed 06/13/2015 [id number] Diabetic Retinal Eye Exam Completed 01/26/2010 [id number] Colonoscopy Completed 06/20/2009 75013 EKG Tracing & Interpretation Completed 08/11/2008 69331 EKG Tracing & Interpretation Completed 03/14/2004 [id number] Colonoscopy Completed Encounters Type Date Location Provider Dx Diagnosis Office Visit 06/25/2018 Neurosurgery Thanh Lord, M54.5 Low back pain 1:20p [facility] M.D. 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 lumbar region [place] Office Visit 01/20/2018 [facility] Girma Kessler G47.00 Insomnia, 4:00p Korey Herrera M.D. unspecified [place] Office Visit 01/03/2018 [facility] Girma Kessler M25.561 Pain in right knee 11:00a Korey Herrera M.D. [place] R10.31 Right lower quadrant pain Office Visit 12/02/2017 1:40p [facility] Nichole M54.9 Dorsalgia, Korey Alfaro M.D. unspecified [place] Office Visit 11/27/2017 3:00p [facility] Girma Kessler I10 Essential ( primary) Korey Herrera M.D. hypertension [place] M54.9 Dorsalgia, unspecified Z12.5 Encounter for screening for malignant neoplasm of prostate Office Visit 11/07/2017 3:20p [facility] Girma Kessler I1Tamika Essential ( primary) Korey Herrera M.D. hypertension Ivan M25.511 Pain in right shoulder Office Visit 05/16/2017 2:40p [facility] Girma Huerta Essential ( primary) Korey Herrera M.D. hypertension [place] Office Visit 09/03/2016 1:00p [facility] Girma Huerta Essential ( primary) Korey Herrera M.D. hypertension [place] I71.4 Abdominal aortic aneurysm, without rupture Office Visit 02/17/2015 [facility] I1Tamika Essential (primary) 10:00a Korey Herrera M.D. hypertension [place] Office Visit 07/27/2014 [facility] Girma Kessler 782.1 Rash & Other 1:20p Korey Herrera M.D. [employer] Skin [place] Eruption Office Visit 07/22/2014 [facility] Nurse Visit C 401.1 Hypertension Benign 9:30a Korey Cotton [place] Office Visit 02/01/2014 [facility] Girma Kessler 401.1 Hypertension Benign 1:00p Korey Herrera M.D. [place] Office Visit 09/21/2013 Orthopedic Nisreen 715.16 Osteoarthrosis 9:00a [facility] Wang M.D. Localized Prim AT [place] Lower Leg Office Visit 09/04/2013 [facility] Girma Kessler 719.46 Pain Joint Lower 2:40p Korey Herrera M.D. Leg [place] Office Visit 02/16/2013 [facility] Kessler 401.1 Hypertension Benign 10:00a Korey Herrera M.D. [place] 441.4 Aneurysm Abdominal W/O Rupture V77.91 Screening For Lipoid Disorders V73.89 Screening Examination Viral Diseases Other Spec Office Visit 03/06/2012 11:40a [facility] K[facility]ler 401.1 Hypertension Benign Korey Herrera M.D. [place] 441.4 Aneurysm Abdominal W/O Rupture Office Visit 08/29/2011 1:40p [facility] K[facility] 465.9 URI Upper Korey Herrera M.D. Respiratory [place] Infections Acute Unspec Sites 441.4 Aneurysm Abdominal W/O Rupture Office Visit 08/13/2011 10:20a [facility] Kessler V70.0 Examination Korey Herrera M.D. General Medical [place] Routine AT [facility] 401.1 Hypertension Benign 602.9 Prostate Disorder Unspec V03.82 Streptococcus Pneumoniae Vaccination Spec Other V81.2 Screening For Cardiovascular Conditions Unspec Office Visit 06/26/2011 4:00p Ralf Kessler 401.1 Hypertension Benign Korey Herrera M.D. [place] Office Visit 01/12/2011 10:00a DO Not Use Ralf Kessler 401.1 Hypertension Benign AT Beto Herrera M.D. Office Visit 07/11/2010 10:40a DO Not Use [facility]alf Kessler V70.0 Examination General AT Beto Herrera M.D. Medical Routine AT Health Care Facility 401.1 Hypertension Benign 602.9 Prostate Disorder Unspec V06.5 Tetanus Diphtheria (DT) Office Visit 05/30/2010 10:20a DO Not Use Ralf Kessler 401.1 Hypertension Benign AT Beto Herrera M.D. 602.9 Prostate Disorder Unspec Office Visit 12/21/2009 10:00a DO Not Use [facility] Girma E. 401.1 Hypertension Benign AT Beto Herrera M.D. 602.9 Prostate Disorder Unspec Office Visit 06/20/2009 9:20a DO Not Use [facility] Girma E. 401.1 Hypertension Benign AT Beto Herrera M.D. 602.9 Prostate Disorder Unspec Office Visit 12/21/2008 10:00a [facility] Girma Herrera, 791.0 Proteinuria AT [facility] Sam 401.1 Hypertension Benign Office Visit 08/11/2008 9:30a [facility] Girma Kessler 602.9 Prostate AT [facility] Sam Herrera Disorder Unspec [place] 401.1 Hypertension Benign Office Visit 12/01/2007 11:00a [facility] Girma Kessler 401.1 Hypertension Benign Assoc AT Sam Herrera [facility] Office Visit 07/10/2007 11:30a [facility] Girma [place] 550.00 Hernia Inguinal W/ Assoc AT Sam Herrera Gangrene Unilateral [facility] Or Unspec Not Recurre Office Visit 06/02/2007 10:30a [place] Girma Kessler 401.1 Hypertension Benign Assoc AT [place] Herrera [facility] Office Visit 12/04/2006 10:00a [place] [facility] Girma Kessler 401.1 Hypertension Benign Assoc AT [place] Herrera [facility] Plan of Treatment Future Appointment(s):09/04/2018 9:20 am - Girma Herrera M.D. at [facility]07/14/2018 - Girma Herrera M.D.I82.4Z1 Acute embolism and thrombosis of unspecified deep veins of r
[2018-07-29 09:05] VITALS: BP 141/78
--- NOTE | 2018-07-29 09:18 | UC ---
Knee Pain HPI - HPI Summary HPI Summary: right knee and right shoulder pain x 1 day s/p fall on his right side injury to his right knee and right shoulder pain is mild , 3 out of 10 , no radiation worse with movements , better with rest - History of Current Complaint Chief Complaint: UCLowerExtremity Stated Complaint: RIGHT ARM,RIGHT KNEE INJURIES (WC) Time Seen by Provider: 07/29/18 09:04 Hx Obtained From: Patient Onset/Duration: Sudden Onset, Lasting Days - 1, Still Present Severity Initially: Mild Severity Currently: Mild Pain Intensity: 4 Pain Scale Used: 0-10 Numeric Character: Dull Aggravating Factor(s): Movement Alleviating Factor(s): Rest Associated Signs And Symptoms: Negative: Swelling, Redness, Bruising, Fever, Weakness, Numbness, Tingling Able to Bear Weight: Yes - Allergies/Home Medications Allergies/Adverse Reactions: Allergies Allergy/AdvReac Type Severity Reaction Status Date / Time No Known Allergies Allergy Verified 07/29/18 09:03 PMH/Surg Hx/FS Hx/Imm Hx - Additional Past Medical History Additional PMH: spinal stenosis Cardiovascular History: Hypertension, Deep Vein Thrombosis - Surgical History Surgical History: Yes Surgery Procedure, Year, and Place: Lumbar Spinal Stenosis, [facility] [place] - Family History Known Family History: Positive: Cardiac Disease - father of massive OR, Diabetes - Social History Alcohol Use: Occasionally Substance Use Type: None Smoking Status (MU): Current Some Day Smoker Type: Cigars Amount Used/How Often: 1-2 cigars q month When Did the Patient Quit Smoking/Using Tobacco: 1979 - Immunization History Most Recent Influenza Vaccination: never Most Recent Pneumonia Vaccination: within past 10 years Vaccination Up to Date: Yes Review of Systems All Other Systems Reviewed And Are Negative: Yes Constitutional: Positive: Negative Skin: Positive: Negative Eyes: Positive: Negative ENT: Positive: Negative Respiratory: Positive: Negative Is Patient Immunocompromised?: No Physical Exam Triage Information Reviewed: Yes Appearance: Well-Appearing, No Pain Distress, Well-Nourished Vital Signs: Initial Vital Signs Temp 98.1 F 07/29/18 09:00 Pulse 69 07/29/18 09:00 Resp 18 07/29/18 09:00 BP 141/78 07/29/18 09:00 Pulse Ox 97 07/29/18 09:00 Vital Signs Reviewed: Yes Eye Exam: Normal Eyes: Positive: Conjunctiva Clear ENT: Positive: Normal ENT inspection, Hearing grossly normal, Pharynx normal Neck: Positive: Supple, Nontender, No Lymphadenopathy Respiratory: Positive: Chest non-tender, Lungs clear, Normal breath sounds Cardiovascular: Positive: RRR, No Murmur, Pulses Normal Musculoskeletal: Positive: Other: - right knee: no swelling, no effusion , small abrasion , no significant tenderness, good ROM , normal strength right shoulder : no swelling, no tenderness, good ROM , normal strength Knee Pain Course/Dx - Differential Dx/Diagnosis Provider Diagnosis: Contusion of right shoulder, Contusion of right knee Discharge - Sign-Out/Discharge Documenting (check all that apply): Patient Departure All imaging exams completed and their final reports reviewed: No Studies - Discharge Plan Condition: Stable Disposition: HOME Patient Education Materials: Contusion in Adults (ED) Referrals: Girma Herrera MD [Primary Care Provider] - If Needed - Billing Disposition and Condition Condition: STABLE Disposition: Home
== END 2018-07-29 09:13 | disposition home or self-care (01) ==
LOC: UCCORT 08:45
DX: S80.01XA Contusion of right knee, initial encounter (principal); S40.011A Contusion of right shoulder, initial encounter; W19.XXXA Unspecified fall, initial encounter; Y92.9 Unspecified place or not applicable; I10 Essential (primary) hypertension; M48.061 Spinal stenosis, lumbar region without neurogenic claudication; Z86.718 Personal history of other venous thrombosis and embolism; Z72.0 Tobacco use
CPT/HCPCS: 99211; G0463